=== PATIENT | female | born 1950 | race American Indian/Alaskan Native ===

== ENCOUNTER 2018-08-12 06:06 | Inpatient (IN) | payer MEDICARE ==
[2018-08-12] MEDS ORDERED: ZOFRAN IV ONE (07:24)
[2018-08-12] MEDS ORDERED: DILAUDID IV ONE ×2 (07:24→17:43)
[2018-08-12] MEDS ORDERED: REGLAN IV ONE (07:24)
[2018-08-12] MEDS ORDERED: NORMODYNE IV ONE (07:26)
--- NOTE | 2018-08-12 07:39 | Emergency Department Report ---
ED General Adult HPI - General Chief complaint: Chest Pain Stated complaint: CHEST PAIN Time Seen by Provider: 08/12/18 07:16 Source: EMS Mode of arrival: Stretcher Limitations: No Limitations - History of Present Illness Initial comments: The patient is a 68-year-old female who reports abdominal pain. This appears to be in the epigastric area and not radiating. I'm not certain that it doesn't also involve the lower chest. It is not pleuritic in nature. Its been associated with nausea. Patient denies pleuritic component. She denies shortness of breath. There's been no diaphoresis. She states she hasn't had pain like this before. She presents with a blood pressure over 200 systolic. She is not in acute distress. She denies any previous diagnosis of cardio vascular disease or any previous abdominal surgery. She has a great deal of dif ficulty describing the nature of the pain but says it's been constant since yesterday. She is here with a lady that is stating that the patient thought that it "might be her gallbladder". She has no prior history of gallstones. -: Gradual, hour(s) Location: abdomen (upper abdomen) Radiation: non-radiation Quality: aching (poorly characterized) Consistency: constant Improves with: none Worsens with: none Associated Symptoms: denies other symptoms, nausea/vomiting Treatments Prior to Arrival: none - Related Data Home Medications Medication Instructions Recorded Confirmed Last Taken hydroCHLOROthiazide [Hctz] 25 mg PO QDAY 01/28/13 08/12/18 07/13/16 09:00 Aspirin 325 mg PO DAILY 08/12/18 08/12/18 Unknown AtorvaSTATin [Lipitor] 20 mg PO QHS 08/12/18 08/12/18 Unknown Enalapril Maleate (Nf) 10 mg PO DAILY 08/12/18 08/12/18 Unknown Sertraline [Zoloft] 50 mg PO DAILY 08/12/18 08/12/18 Unknown Allergies Allergy/AdvReac Type Severity Reaction Status Date / Time No Known Allergies Allergy Verified 01/26/16 10:01 ED Review of Systems ROS: Stated complaint: CHEST PAIN Other details as noted in HPI Constitutional: denies: chills, fever Eyes: denies: eye pain, eye discharge, vision change ENT: denies: ear pain, throat pain Respiratory: denies: cough, shortness of breath, wheezing Cardiovascular: chest pain (possibly as well). denies: palpitations Endocrine: no symptoms reported Gastrointestinal: abdominal pain, nausea. denies: diarrhea Genitourinary: denies: urgency, dysuria, discharge Musculoskeletal: denies: back pain, joint swelling, arthralgia Skin: denies: rash, lesions Neurological: denies: headache, weakness, paresthesias Psychiatric: denies: anxiety, depression Hematological/Lymphatic: denies: easy bleeding, easy bruising ED Past Medical Hx - Past Medical History Previous Medical History?: Yes Hx Hypertension: Yes () Hx Renal Disease: No Hx Arthritis: Yes Hx Seizures: No Hx Asthma: Yes (INHALERS PRN) Additional medical history: angina. anxiety attacks - Surgical History Past Surgical History?: Yes Hx Appendectomy: Yes Additional Surgical History: hysterectomy. left foot surgery - Social History Smoking Status: Heavy Tobacco Smoker Substance Use Type: None - Medications Home Medications: Home Medications Medication Instructions Recorded Confirmed Last Taken Type hydroCHLOROthiazide [Hctz] 25 mg PO QDAY 01/28/13 08/12/18 07/13/16 09:00 History Aspirin 325 mg PO DAILY 08/12/18 08/12/18 Unknown History AtorvaSTATin [Lipitor] 20 mg PO QHS 08/12/18 08/12/18 Unknown History Enalapril Maleate (Nf) 10 mg PO DAILY 08/12/18 08/12/18 Unknown History Sertraline [Zoloft] 50 mg PO DAILY 08/12/18 08/12/18 Unknown History ED Physical Exam - General Limitations: No Limitations General appearance: alert, in no apparent distress - Head Head exam: Present: atraumatic, normocephalic - Eye Eye exam: Present: normal appearance. Absent: scleral icterus - ENT ENT exam: Present: mucous membranes moist - Neck Neck exam: Present: normal inspection - Respiratory Respiratory exam: Present: normal lung sounds bilaterally. Absent: respiratory distress - Cardiovascular Cardiovascular Exam: Present: regular rate, normal rhythm. Absent: systolic murmur, diastolic murmur, rubs, gallop - GI/Abdominal GI/Abdominal exam: Present: soft, normal bowel sounds, other (patient states abdominal palpation causes nausea but not tenderness). Absent: distended, tenderness, guarding, rebound, rigid - Extremities Exam Extremities exam: Present: normal inspection, normal capillary refill. Absent: calf tenderness - Back Exam Back exam: Present: normal inspection. Absent: CVA tenderness (R), CVA tenderness (L), rash noted - Neurological Exam Neurological exam: Present: alert, oriented X3, CN II-XII intact - Psychiatric Psychiatric exam: Present: normal affect, normal mood - Skin Skin exam: Present: warm, dry, intact, normal color. Absent: rash ED Course Vital Signs 08/12/18 08/12/18 08/12/18 07:10 07:19 07:25 Temperature 98.2 F Pulse Rate 52 L Respiratory 16 Rate Blood Pressure Blood Pressure 202/93 [Left] O2 Sat by Pulse 100 100 100 Oximetry 08/12/18 08/12/18 08/12/18 07:30 07:40 07:46 Temperature Pulse Rate 56 L Respiratory Rate Blood Pressure 195/117 202/93 202/93 Blood Pressure [Left] O2 Sat by Pulse 100 98 Oximetry 08/12/18 08/12/18 08/12/18 08:00 08:16 08:30 Temperature Pulse Rate Respiratory Rate Blood Pressure 132/61 132/61 127/63 Blood Pressure [Left] O2 Sat by Pulse 98 100 99 Oximetry 08/12/18 08/12/18 08/12/18 08:46 09:00 09:16 Temperature Pulse Rate Respiratory 16 Rate Blood Pressure 127/63 135/64 135/64 Blood Pressure [Left] O2 Sat by Pulse 100 99 98 Oximetry 08/12/18 08/12/18 08/12/18 09:30 09:56 10:00 Temperature Pulse Rate Respiratory Rate Blood Pressure 126/53 126/53 149/67 Blood Pressure [Left] O2 Sat by Pulse 99 98 99 Oximetry 08/12/18 08/12/18 08/12/18 10:46 11:00 11:16 Temperature Pulse Rate Respiratory Rate Blood Pressure 136/73 139/64 139/64 Blood Pressure [Left] O2 Sat by Pulse 99 99 98 Oximetry 08/12/18 08/12/18 11:34 11:46 Temperature Pulse Rate 60 Respiratory 13 Rate Blood Pressure 139/64 158/78 Blood Pressure [Left] O2 Sat by Pulse 83 L 100 Oximetry - Reevaluation(s) Reevaluation #1: Still awaiting ultrasound report. Patient's lipase was nearly 1,000. CT did not show any acute abnormality. Refer to the hospital service. 08/12/18 13:22 ED Medical Decision Making - Lab Data Result diagrams: 08/12/18 07:31 08/12/18 07:31 Laboratory Results - last 24 hr 08/12/18 08/12/18 08/12/18 07:31 07:31 07:31 WBC 16.2 H RBC 4.63 Hgb 12.1 Hct 37.5 MCV 81 MCH 26 L MCHC 32 RDW 15.4 H Plt Count 236 Lymph % (Auto) 8.1 L [place] % (Auto) 4.0 Eos % (Auto) 0.1 Baso % (Auto) 0.3 Lymph # 1.3 [place] # 0.6 Eos # 0.0 Baso # 0.0 Seg Neutrophils % 87.5 H Seg Neutrophils # 14.2 H PT 11.6 L INR 0.80 L APTT 23.0 L D-Dimer 1003.05 H Sodium 138 Potassium 3.7 Chloride 103.3 Carbon Dioxide 25 Anion Gap 13 BUN 9 Creatinine 0.7 Estimated GFR > 60 BUN/Creatinine Ratio 13 Glucose 125 H Calcium 8.8 Total Bilirubin 0.30 Direct Bilirubin < 0.2 AST 19 ALT 10 Alkaline Phosphatase 56 Total Creatine Kinase CK-MB (CK-2) CK-MB (CK-2) Rel Index Troponin T NT-Pro-B Natriuret Pep Total Protein 7.4 Albumin 4.0 Albumin/Globulin Ratio 1.2 Blood Type Antibody Screen 08/12/18 08/12/18 08/12/18 07:31 07:31 07:31 WBC RBC Hgb Hct MCV MCH MCHC RDW Plt Count Lymph % (Auto) [place] % (Auto) Eos % (Auto) Baso % (Auto) Lymph # [place] # Eos # Baso # Seg Neutrophils % Seg Neutrophils # PT INR APTT D-Dimer Sodium Potassium Chloride Carbon Dioxide Anion Gap BUN Creatinine Estimated GFR BUN/Creatinine Ratio Glucose Calcium Total Bilirubin Direct Bilirubin AST ALT Alkaline Phosphatase Total Creatine Kinase 77 CK-MB (CK-2) 1.7 CK-MB (CK-2) Rel Index 2.2 Troponin T < 0.010 NT-Pro-B Natriuret Pep 168.0 Total Protein Albumin Albumin/Globulin Ratio Blood Type B POSITIVE Antibody Screen Negative Laboratory Results - last 24 hr 04/07/19 04/07/19 04/07/19 07:31 07:31 07:31 WBC 16.2 H RBC 4.63 Hgb 12.1 Hct 37.5 MCV 81 MCH 26 L MCHC 32 RDW 15.4 H Plt Count 236 Lymph % (Auto) 8.1 L [place] % (Auto) 4.0 Eos % (Auto) 0.1 Baso % (Auto) 0.3 Lymph # 1.3 [place] # 0.6 Eos # 0.0 Baso # 0.0 Seg Neutrophils % 87.5 H Seg Neutrophils # 14.2 H PT 11.6 L INR 0.80 L APTT 23.0 L D-Dimer 1003.05 H Sodium 138 Potassium 3.7 Chloride 103.3 Carbon Dioxide 25 Anion Gap 13 BUN 9 Creatinine 0.7 Estimated GFR > 60 BUN/Creatinine Ratio 13 Glucose 125 H Calcium 8.8 Total Bilirubin 0.30 Direct Bilirubin < 0.2 AST 19 ALT 10 Alkaline Phosphatase 56 Total Creatine Kinase CK-MB (CK-2) CK-MB (CK-2) Rel Index Troponin T NT-Pro-B Natriuret Pep Total Protein 7.4 Albumin 4.0 Albumin/Globulin Ratio 1.2 Lipase 976 H Blood Type Antibody Screen 08/12/18 08/12/18 08/12/18 07:31 07:31 07:31 WBC RBC Hgb Hct MCV MCH MCHC RDW Plt Count Lymph % (Auto) [place] % (Auto) Eos % (Auto) Baso % (Auto) Lymph # [place] # Eos # Baso # Seg Neutrophils % Seg Neutrophils # PT INR APTT D-Dimer Sodium Potassium Chloride Carbon Dioxide Anion Gap BUN Creatinine Estimated GFR BUN/Creatinine Ratio Glucose Calcium Total Bilirubin Direct Bilirubin AST ALT Alkaline Phosphatase Total Creatine Kinase 77 CK-MB (CK-2) 1.7 CK-MB (CK-2) Rel Index 2.2 Troponin T < 0.010 NT-Pro-B Natriuret Pep 168.0 Total Protein Albumin Albumin/Globulin Ratio Lipase Blood Type B POSITIVE Antibody Screen Negative - EKG Data -: EKG Interpreted by Me EKG shows normal: sinus rhythm - EKG Data Interpretation: other (frequent PVCs normal axis slight ST depression inferolateral) - Radiology Data Radiology results: report reviewed (CTA of the abdomen chest and pelvis showed nothing acute. Abdominal ultrasound showed no biliary dilatation or gallstones otherwise unremarkable) Critical care attestation.: If time is entered above; I have spent that time in minutes in the direct care of this critically ill patient, excluding procedure time. ED Disposition Clinical Impression: Pancreatitis, acute Qualifiers: Pancreatitis type: unspecified pancreatitis type Acute pancreatitis complication: unspecified Qualified Code(s): K85.90 - Acute pancreatitis without necrosis or infection, unspecified Disposition: 09 OP ADMIT IP TO THIS HOSP Is pt being admited?: Yes Does the pt Need Aspirin: Yes Condition: Stable Referrals: [facility] [Other] - 3-5 Days Time of Disposition: 13:41
[2018-08-12 07:50] LABS: Basophils % (Auto) 0.3 % (0.0-1.8); Eosinophils % (Auto) 0.1 % (0.0-4.3); Hematocrit 37.5 % (30.3-42.9); Hemoglobin 12.1 gm/dl (10.1-14.3); Lymphocytes # (Auto) 1.3 K/mm3 (1.2-5.4); Lymphocytes % (Auto) 8.1 % (13.4-35.0); Mean Corpuscular HGB Conc 32 % (30-34); Mean Corpuscular Volume 81 fl (79-97); Monocytes # (Auto) 0.6 K/mm3 (0.0-0.8); Platelet Count 236 K/mm3 (140-440); Red Blood Count 4.63 M/mm3 (3.65-5.03); Red Cell Distribution Width 15.4 % (13.2-15.2)
[2018-08-12 07:59] LABS: INR 0.8 (0.87-1.13)
--- NOTE | 2018-08-12 08:02 | XRay Report ---
EXAM: XR CHEST 1V AP HISTORY: HTN TECHNIQUE: PA and lateral chest x-ray dated 08/12/2017 at 7:38 AM. COMPARISON: None available. FINDINGS: The heart size and mediastinum are within normal limits. The lung alva and costophrenic angles are clear. There is no acute parenchymal infiltrate, pleural effusion, or pneumothorax seen. The visua lized bony structures are within normal limits. IMPRESSION: 1. No evidence for acute cardiopulmonary disease seen. This document is electronically signed by Wyatt Vazquez MD., August 12 2018 08:00:26 AM ET
[2018-08-12 08:06] LABS: Creatine Kinase MB 1.7 ng/mL (0.0-4.0)
[2018-08-12 08:09] LABS: Alanine Aminotransferase 10 units/L (7-56); BUN/Creatinine Ratio 13; Blood Urea Nitrogen 9 mg/dL (7-17); Calcium 8.8 mg/dL (8.4-10.2); Hemolysis Index 10
[2018-08-12 08:11] LABS: Bilirubin,Direct < 0.2 mg/dL (0-0.2)
[2018-08-12 11:56] LABS: Bacteria,Urine 1+ /HPF (Negative); Bilirubin,Urine NEG (Negative); Blood,Urine NEG (Negative); Color,Urine Yellow (Yellow); Mucus,Urine FEW /HPF; Protein,Urine <15 mg/dL mg/dL (Negative); Urobilinogen,Urine < 2.0 mg/dL (<2.0)
--- NOTE | 2018-08-12 12:19 | Cat Scan Report ---
EXAM: CT ANGIO CHEST HISTORY: chest and abd pain htn TECHNIQUE: Spiral axial CT images with sagittal and coronal reformatted images are obtained through the chest with the administration of intravenous contrast. DOSIMETRY: Total DLP: 1044.73 mGycm COMPARISON: None available. FINDINGS: CARDIOVASCULAR: There is no evidence for pulmonary embolic disease. The heart size and mediastinal va scular structures are within normal limits. There is no significant aortic or coronary atheroscleros is seen. No thoracic aortic aneurysm or dissection is noted. MEDIASTINUM AND TRU: No mass lesion, lymphadenopathy, emphysema, or abnormal fluid collection is see n. LUNGS: There is no acute parenchymal infiltrate, lung nodule, or endobronchial obstructing lesion see n. No pleural effusion or pneumothorax is evident. There is an approximately 1 cm emphysematous bull a in the superior segment of the right lower lobe CHEST WALL: There are no chest wall lesions seen. The visualized bony structures are within normal l imits. No axillary lymphadenopathy is noted. UPPER ABDOMEN: Limited views through the upper abdomen demonstrate no gross acute abnormality. Small calcified granulomas are seen in the spleen and liver. IMPRESSION: 1. No evidence for pulmonary embolic disease. 2. No evidence for aortic aneurysm or aortic dissection. 3. No acute parenchymal infiltrate, pleural effusion, endobronchial obstructing lesion or pneumothor ax seen. 4. Evidence for prior granulomatous disease marked by calcified splenic and hepatic granulomas. This document is electronically signed by Wyatt Vazquez MD., August 12 2018 12:18:10 PM ET
--- NOTE | 2018-08-12 12:41 | Cat Scan Report ---
EXAM: CT ANGIO ABDOMEN PELVIS HISTORY: chest and abd pain htn TECHNIQUE: Spiral axial CT images are obtained through the abdomen and pelvis without the administrat ion of oral contrast and with the administration of intravenous contrast. Additional coronal and sagi ttal reformatted images are reconstructed. COMPARISON: None available. FINDINGS: GASTROINTESTINAL TRACT: There is severe diffuse colonic diverticulosis, without evidence for divertic ulitis. No evidence for bowel herniation, bowel obstruction, or colitis. There are no stigmata of bowel obstr uction, colitis or diverticulitis. A normal-appearing appendix is seen. GENITOURINARY SYSTEM: The kidneys are unremarkable. There is no ureteral calculus or stigmata of obst ructive uropathy. The urinary bladder is grossly unremarkable for a non-dedicated exam. CT ABDOMEN: There is evidence for prior granulomatous disease marked by multiple innumerable calcifie d granulomas in the spleen and liver. There is evidence for aortoiliac atherosclerotic disease, witho ut aneurysm formation or dissection. The liver, spleen, pancreas, adrenal glands, gallbladder and in ferior vena cava are within normal limits for a noncontrast CT scan. There is no intra-abdominal or retroperitoneal lymphadenopathy, free fluid, or free air seen. No abdominal herniation is noted. CT PELVIS: There is severe multilevel DDD throughout the lumbar spine, progressively worse distally. There is severe osteoarthritis of the hips, marked by joint space narrowing and marginal osteophytosi s (right greater than left). The visualized bony structures are otherwise within normal limits. No p elvic sidewall or inguinal lymphadenopathy is seen. No inguinal herniation is noted. No free fluid o r free air is seen. LUNG BASES: The lung bases are clear. Approximately 1.2 cm right infrahilar/medial right lower lobe n oncalcified lung nodule. For low risk patient, recommend follow-up CT in 12 months, and if stable no further follow-up. For high-risk patient, recommend follow-up CT in no more than 6-12 months, and if stable, consider follow-up at 18-24 months. IMPRESSION: 1. No gross acute abnormality seen. 2. No evidence for renal stone disease or obstructive uropathy. 3. Severe diffuse colonic diverticulosis, without evidence for diverticulitis. 4. No evidence for bowel herniation, bowel obstruction, or colitis. 5. Severe multilevel DDD throughout the L-spine, progressively worse distally. 6. No evidence for acute appendicitis, bowel obstruction, colitis or diverticulitis seen. 7. Approximately 1.2 cm right infrahilar/medial right lower lobe noncalcified lung nodule. For low r isk patient, recommend follow-up CT in 12 months, and if stable no further follow-up. For high-risk p atient, recommend follow-up CT in no more than 6-12 months, and if stable, consider follow-up at 18-2 4 months. This document is electronically signed by Wyatt Vazquez MD., August 12 2018 12:39:36 PM ET
--- NOTE | 2018-08-12 13:24 | History and Physical Report ---
History of Present Illness Chief complaint: My stomach hurts History of present illness: 68 YO Female with HTN, OA, Asthma, Anxiety, Nicotine Dependence presents to ED for evaluation. Pt states that she has experienced abdominal pain, Nausea, and inability to tolerate oral diet over the past 2 days with persistent symptoms over the same time frame. Pt states that pain is 3-6/10, Epigastric, nonradiating, constant, aching, no exacerbating or alleviating factors. EMS notified and upon arrival the patient was found to be in distress and transported to [facility]. Pt seen and evaluated in ED and found to have Acute Pancrea titis, Abdominal pain, SIRS, and Right Lung nodule as incidental finding on CT scan. Pt denies fever, chills, CP, Palpitations, Trauma, BRBPR, Unintentional weight loss, night sweats, ingestion of food/water from new/different sources. No prior admissions for review. All listed medication reconciled at admission. GI consulted in ED. Pt admitted to medical floor. Past History Past Medical History: arthritis, hypertension Past Surgical History: appendectomy, hysterectomy, Other (Foot surgery) Social history: , smoking. denies: alcohol abuse, prescription drug abuse Family history: hypertension Medications and Allergies Allergies Allergy/AdvReac Type Severity Reaction Status Date / Time No Known Allergies Allergy Verified 01/26/16 10:01 Home Medications Medication Instructions Recorded Confirmed Last Taken Type hydroCHLOROthiazide [Hctz] 25 mg PO QDAY 01/28/13 08/12/18 07/13/16 09:00 History Aspirin 325 mg PO DAILY 08/12/18 08/12/18 Unknown History AtorvaSTATin [Lipitor] 20 mg PO QHS 08/12/18 08/12/18 Unknown History Enalapril Maleate (Nf) 10 mg PO DAILY 08/12/18 08/12/18 Unknown History Sertraline [Zoloft] 50 mg PO DAILY 08/12/18 08/12/18 Unknown History Review of Systems Constitutional: no weight loss, no weight gain, no fever, no chills, no anorexia, no weakness Ears, nose, mouth and throat: no ear pain, no ear discharge, no tinnitis, no decreased hearing, no nose pain Breasts: no change in shape, no swelling, no mass Cardiovascular: no chest pain, no orthopnea, no palpitations, no rapid/irregular heart beat Respiratory: no cough, no cough with sputum, no excessive sputum, no hemoptysis Gastrointestinal: abdominal pain, nausea, no constipation, no change in bowel habits, no coffee ground emesis, no BRBPR, no melena, no hematochezia, no jaundice Genitourinary Female: no pelvic pain, no flank pain, no menorrhagia, no dysuria, no urinary frequency, no urgency Rectal: no pain, no incontinence, no bleeding Musculoskeletal: no neck stiffness, no neck pain, no shooting arm pain, no arm numbness/tingling, no low back pain, no shooting leg pain, no leg numbness/tingling Integumentary: no rash, no pruritis, no redness, no sores, no wounds, no jaundice Neurological: no head injury, no transient paralysis, no paralysis, no weakness, no parathesias, no tingling, no syncope, no tremors Psychiatric: no anxiety, no memory loss, no change in sleep habits, no sleep disturbances, no insomnia, no hypersomnia, no change in appetite, no suicidal ideation Endocrine: no cold intolerance, no heat intolerance, no polyphagia, no excessive thirst, no polydipsia, no polyuria, no nocturia Hematologic/Lymphatic: no easy bruising, no easy bleeding, no lymphedema Allergic/Immunologic: no urticaria, no allergic rhinitis, no wheezing, no persistent infections Exam - Constitutional Vitals: Temp Pulse Resp BP Pulse Ox 98.2 F 60 13 158/78 100 08/12/18 07:19 08/12/18 11:46 08/12/18 11:46 08/12/18 11:46 08/12/18 11:46 General appearance: Present: mild distress, cachectic - EENT Eyes: Present: PERRL ENT: hearing intact, clear oral mucosa - Neck Neck: Present: supple, normal ROM - Respiratory Respiratory effort: normal Respiratory: bilateral: CTA - Cardiovascular Heart Sounds: Present: S1 & S2. Absent: rub, click - Extremities Extremities: pulses symmetrical, No edema Peripheral Pulses: within normal limits - Abdominal General gastrointestinal: Present: soft, tender, non-distended, normal bowel sounds. Absent: hepatomegaly, splenomegaly, mass, hernia Localized gastrointestinal: tender: epigastric periumbilical Female genitourinary: Present: normal - Integumentary Integumentary: Present: clear, warm, dry - Musculoskeletal Musculoskeletal: gait normal, strength equal bilaterally - Psychiatric Psychiatric: appropriate mood/affect, intact judgment & insight - Neurologic Neurologic: CNII-XII intact, moves all extremities Results - Labs CBC & Chem 7: 08/12/18 07:31 08/12/18 07:31 Labs: Abnormal lab results 08/12/18 08/12/18 08/12/18 Range/Units 07:31 07:31 07:31 WBC 16.2 H (4.5-11.0) K/mm3 MCH 26 L (28-32) pg RDW 15.4 H (13.2-15.2) % Lymph % (Auto) 8.1 L (13.4-35.0) % Seg Neutrophils % 87.5 H (40.0-70.0) % Seg Neutrophils # 14.2 H (1.8-7.7) K/mm3 PT 11.6 L (12.2-14.9) Sec. INR 0.80 L (0.87-1.13) APTT 23.0 L (24.2-36.6) Sec. D-Dimer 1003.05 H (0-234) ng/mlDDU Glucose 125 H (65-100) mg/dL Lipase 976 H (13-60) units/L Ur Specific [place] (1.003-1.030) 08/12/18 Range/Units 11:40 WBC (4.5-11.0) K/mm3 MCH (28-32) pg RDW (13.2-15.2) % Lymph % (Auto) (13.4-35.0) % Seg Neutrophils % (40.0-70.0) % Seg Neutrophils # (1.8-7.7) K/mm3 PT (12.2-14.9) Sec. INR (0.87-1.13) APTT (24.2-36.6) Sec. D-Dimer (0-234) ng/mlDDU Glucose (65-100) mg/dL Lipase (13-60) units/L Ur Specific [place] 1.060 H (1.003-1.030) Assessment and Plan - Patient Problems (1) SIRS (systemic inflammatory response syndrome) Current Visit: Yes Status: Acute Plan to address problem: CBC, CMP,Empiric antibiotic therapy, Chest x ray, urinalysis, IVF resuscitation therapy, (2) Pancreatitis, acute Current Visit: Yes Status: Acute Qualifiers: Pancreatitis type: unspecified pancreatitis type Acute pancreatitis complication: unspecified Qualified Code(s): K85.90 - Acute pancreatitis with out necrosis or infection, unspecified Plan to address problem: IVF resuscitation therapy, bowel rest, advance diet as tolerated, CT ABdomen pelvis, ultrasound abdomen ordered and pending at time of admission, GI consulted, (3) Nicotine dependence with withdrawal Current Visit: Yes Status: Acute Qualifiers: Nicotine product type: cigarettes Qualified Code(s): F17.213 - Nicotine dependence, cigarettes, with withdrawal Plan to address problem: Smoking cessation counseling, supportive care. (4) Hypertension Current Visit: No Status: Chronic Qualifiers: Hypertension type: essential hypertension Qualified Code(s): I10 - Essential (primary) hypertension Plan to address problem: Monitor bp q shift, continue prehospital medication, continue medical manageme nt, IV hydralazine prn (5) Right lower lobe pulmonary nodule Current Visit: Yes Status: Acute Plan to address problem: Incidental finding on CT; Repeat CT chest in 6 months as outpatient. (6) DVT prophylaxis Current Visit: No Status: Acute Plan to address problem: SCD to BLE while in bed, prophylactic lovenox
[2018-08-12] MEDS ORDERED: PROVENTIL IH PRN (13:34)
[2018-08-12] MEDS ORDERED: SODIUM CHLORIDE FLUSH SYRINGE 10 ML IV PRN (13:34)
--- NOTE | 2018-08-12 13:34 | Ultrasound Report ---
PROCEDURE: US GALLBLADDER TECHNIQUE: Real-time sonography in multiple planes of the gallbladder fossa and CBD with imaging of the adjacent liver, pancreas, and right kidney was performed with image documentation. CPT 73489 HISTORY: Pancreatitis COMPARISONS: CT 08/12/2018 . FINDINGS: Liver: Multiple echogenic foci are seen in the liver, compatible with calcified granulomas. Gallbladder: Fluid filled. No gallstones, wall thickening, pericholecystic fluid, or sonographic Mur phy's sign. Intrahepatic bile ducts: Normal . Extrahepatic bile ducts: Common bile duct measures 2 mm in caliber. Pancreas: Not fully visualized. Right kidney: Normal echotexture. No focal renal mass, calculus, or hydronephrosis. Other: No free fluid. IMPRESSION: No sonographic evidence of cholelithiasis or biliary ductal dilatation . This document is electronically signed by Pat Hatfield MD., August 12 2018 01:33:06 PM ET
[2018-08-12] MEDS ORDERED: BABY ASPIRIN PO ONE (13:41)
[2018-08-12] MEDS ORDERED: APRESOLINE IV PRN (17:27)
[2018-08-12] MEDS ORDERED: ZOFRAN ONE (17:33)
[2018-08-12] MEDS: ZOFRAN IV PRN (17:36)
[2018-08-12] MEDS ORDERED: DILAUDID ONE (17:41)
[2018-08-12] MEDS ORDERED: LEVAQUIN 500MG/100ML 500 MG/100 ML BAG IV ONE (18:44)
[2018-08-12] MEDS: LEVAQUIN 500MG/100ML 500 MG/100 ML BAG IV SCH (18:45)
[2018-08-12] MEDS: SODIUM CHLORIDE FLUSH SYRINGE 10 ML IV SCH (23:11)
[2018-08-12] MEDS: LOVENOX SUB-Q SCH (23:11)
[2018-08-12] MEDS: TYLENOL PO PRN (23:18)
[2018-08-13] MEDS: NACL 0.45% 1000 ML 1,000 ML IV SCH ×3 (00:10→21:09)
[2018-08-13 04:00] LABS: Hematocrit 34.1 % (30.3-42.9); Mean Corpuscular Volume 81 fl (79-97); Red Blood Count 4.21 M/mm3 (3.65-5.03)
[2018-08-13 04:01] LABS: Basophils % (Auto) 0.4 % (0.0-1.8); Eosinophils % (Auto) 0.2 % (0.0-4.3); Lymphocytes # (Auto) 2.1 K/mm3 (1.2-5.4); Lymphocytes % (Auto) 17.5 % (13.4-35.0); Mean Corpuscular HGB Conc 32 % (30-34); Monocytes # (Auto) 0.8 K/mm3 (0.0-0.8); Monocytes % (Auto) 6.5 % (0.0-7.3); Platelet Count 220 K/mm3 (140-440); Red Cell Distribution Width 15.8 % (13.2-15.2)
[2018-08-13 04:13] LABS: Alanine Aminotransferase 7 units/L (7-56); Albumin 3.3 g/dL (3.9-5); BUN/Creatinine Ratio 13; Blood Urea Nitrogen 8 mg/dL (7-17); Calcium 8.8 mg/dL (8.4-10.2); Hemolysis Index 9
[2018-08-13] MEDS: HCTZ PO SCH (09:20)
[2018-08-13] MEDS: ZOLOFT PO SCH (09:20)
[2018-08-13] MEDS: ASPIRIN PO SCH (09:20)
[2018-08-13] MEDS: TYLENOL PO PRN (09:37)
[2018-08-13] MEDS: SODIUM CHLORIDE FLUSH SYRINGE 10 ML IV SCH ×2 (09:40→22:14)
[2018-08-13] MEDS ORDERED: NORCO 10/325 PO PRN (10:00)
[2018-08-13] MEDS ORDERED: ZESTRIL PO SCH ×2 (10:00→12:48)
[2018-08-13] MEDS ORDERED: ENALAPRIL MALEATE 10 MG PO SCH (10:00)
--- NOTE | 2018-08-13 11:55 | Progress Note ---
Assessment and Plan Assessment and plan: Assessment: 68 Y.O. female presented to ED on 08/12/18 with c/o of acute abdominal pain, admitted for Acute Pancreatitis. Upon assessment pt has tenderness to LUQ and LLQ. SIRS Acute Prancreatitis HTN Pain Mgmt Suspected Pulmonary Nodule- Right Lower Lobe Nicotine Abuse Plan: Continue IVF, bowel rest, and advance diet as tolerated Continue pain management Continue levaquin Am Labs: CBC, CMP CT Abd and Pelvis 08/12 resulted: no gross acute abnormalities; severe diffuse colonic diverticulosis without evidence of diverticulitis; and unrevealing for bowel herniation, obstruction, colitis, and acute appendicitis. Abdominal US 08/12 unrevealing for cholelthiasis or biliary ductal dilatation CXR 08/12 unrevealing for any acute cardiopulmonary disease GI consulted pending recommendations Increase Lisinopril to 20mg BID Continue home HCTZ and monitor BP, IV hydralazine PRN Continue to encourage smoking smoking cessation, start Nicotine patch 7mg Daily CT Abdomen was concerning for RLL pulmonary nodule. CT Chest on 08/12 did not show any evidence of any pulmonary nodules. Plans to D/C to home for 08/14 Continue DVT PPX Lovenox History Interval history: Pt continues to c/o moderate 5/10 abdominal pain and nausea. She denies any episodes of emesis. There were no acute overnight events. Hospitalist Physical - Constitutional Vitals: Temp Pulse Resp BP Pulse Ox 99.2 F 61 16 152/65 99 08/13/18 07:47 08/13/18 09:19 08/13/18 09:37 08/13/18 09:19 08/13/18 10:00 General appearance: Present: mild distress, cachectic - EENT Eyes: Present: PERRL ENT: hearing intact - Neck Neck: Present: supple, normal ROM - Respiratory Respiratory effort: normal - Cardiovascular Rhythm: regular Heart Sounds: Present: S1 & S2 - Extremities Extremities: pulses intact, No edema Peripheral Pulses: within normal limits - Abdominal General gastrointestinal: tender (LUQ and LLQ) Localized gastrointestinal: tender: LUQ, LLQ, midline - Integumentary Integumentary: Present: warm, dry - Psychiatric Psychiatric: appropriate mood/affect - Neurologic Neurologic: CNII-XII intact - Allied Health Allied health notes reviewed: nursing, RT Results - Labs CBC & Chem 7: 08/13/18 02:49 04/08/19 02:49 Labs: Laboratory Last Values WBC 12.2 K/mm3 (4.5-11.0) H 08/13/18 02:49 RBC 4.21 M/mm3 (3.65-5.03) 08/13/18 02:49 Hgb 11.0 gm/dl (10.1-14.3) 08/13/18 02:49 Hct 34.1 % (30.3-42.9) 08/13/18 02:49 MCV 81 fl (79-97) 08/13/18 02:49 MCH 26 pg (28-32) L 08/13/18 02:49 MCHC 32 % (30-34) 08/13/18 02:49 RDW 15.8 % (13.2-15.2) H 08/13/18 02:49 Plt Count 220 K/mm3 (140-440) 08/13/18 02:49 Lymph % (Auto) 17.5 % (13.4-35.0) 08/13/18 02:49 [place] % (Auto) 6.5 % (0.0-7.3) 08/13/18 02:49 Eos % (Auto) 0.2 % (0.0-4.3) 08/13/18 02:49 Baso % (Auto) 0.4 % (0.0-1.8) 08/13/18 02:49 Lymph # 2.1 K/mm3 (1.2-5.4) 08/13/18 02:49 [place] # 0.8 K/mm3 (0.0-0.8) 08/13/18 02:49 Eos # 0.0 K/mm3 (0.0-0.4) 08/13/18 02:49 Baso # 0.0 K/mm3 (0.0-0.1) 08/13/18 02:49 Seg Neutrophils % 75.4 % (40.0-70.0) H 08/13/18 02:49 Seg Neutrophils # 9.2 K/mm3 (1.8-7.7) H 08/13/18 02:49 PT 11.6 Sec. (12.2-14.9) L 08/12/18 07:31 INR 0.80 (0.87-1.13) L 08/12/18 07:31 APTT 23.0 Sec. (24.2-36.6) L 08/12/18 07:31 D-Dimer 1003.05 ng/mlDDU (0-234) H 08/12/18 07:31 Sodium 137 mmol/L (137-145) 08/13/18 02:49 Potassium 3.5 mmol/L (3.6-5.0) L 08/13/18 02:49 Chloride 102.4 mmol/L (98-107) 08/13/18 02:49 Carbon Dioxide 23 mmol/L (22-30) 08/13/18 02:49 Anion Gap 15 mmol/L 08/13/18 02:49 BUN 8 mg/dL (7-17) 08/13/18 02:49 Creatinine 0.6 mg/dL (0.7-1.2) L 08/13/18 02:49 Estimated GFR > 60 ml/min 08/13/18 02:49 BUN/Creatinine Ratio 13 % 08/13/18 02:49 Glucose 77 mg/dL (65-100) 08/13/18 02:49 Calcium 8.8 mg/dL (8.4-10.2) 08/13/18 02:49 Total Bilirubin 0.40 mg/dL (0.1-1.2) 08/13/18 02:49 Direct Bilirubin < 0.2 mg/dL (0-0.2) 08/12/18 07:31 AST 14 units/L (5-40) 08/13/18 02:49 ALT 7 units/L (7-56) 08/13/18 02:49 Alkaline Phosphatase 45 units/L (35-129) 08/13/18 02:49 Total Creatine Kinase 77 units/L (30-135) 08/12/18 07:31 CK-MB (CK-2) 1.7 ng/mL (0.0-4.0) 08/12/18 07:31 CK-MB (CK-2) Rel Index 2.2 (0-4) 08/12/18 07:31 Troponin T < 0.010 ng/mL (0.00-0.029) 08/12/18 07:31 NT-Pro-B Natriuret Pep 168.0 pg/mL (0-900) 08/12/18 07:31 Total Protein 6.2 g/dL (6.3-8.2) L 08/13/18 02:49 Albumin 3.3 g/dL (3.9-5) L 08/13/18 02:49 Albumin/Globulin Ratio 1.1 % 08/13/18 02:49 Lipase 976 units/L (13-60) H 08/12/18 07:31 Urine Color Yellow (Yellow) 08/12/18 11:40 Urine Turbidity Clear (Clear) 08/12/18 11:40 Urine pH 6.0 (5.0-7.0) 08/12/18 11:40 Ur Specific [place] 1.060 (1.003-1.030) H 08/12/18 11:40 Urine Protein <15 mg/dl mg/dL (Negative) 08/12/18 11:40 Urine Glucose (UA) Neg mg/dL (Negative) 08/12/18 11:40 Urine Ketones Neg mg/dL (Negative) 08/12/18 11:40 Urine Blood Neg (Negative) 08/12/18 11:40 Urine Nitrite Pos (Negative) 08/12/18 11:40 Urine Bilirubin Neg (Negative) 08/12/18 11:40 Urine Urobilinogen < 2.0 mg/dL (<2.0) 08/12/18 11:40 Ur Leukocyte Esterase Neg (Negative) 08/12/18 11:40 Urine WBC (Auto) 1.0 /HPF (0.0-6.0) 08/12/18 11:40 Urine RBC (Auto) 4.0 /HPF (0.0-6.0) 08/12/18 11:40 U Epithel Cells (Auto) 1.0 /HPF (0-13.0) 08/12/18 11:40 Urine Bacteria (Auto) 1+ /HPF (Negative) 08/12/18 11:40 Urine Mucus Few /HPF 08/12/18 11:40 Blood Type B POSITIVE 08/12/18 07:31 Antibody Screen Negative 08/12/18 07:31 Active Medications - Current Medications Current Medications: Generic Name Dose Route Start Last Admin Trade Name Freq PRN Reason Stop Dose Admin Acetaminophen 650 mg 08/12/18 13:34 08/13/18 09:37 Tylenol PO 650 mg Q4H PRN Administration Pain MILD(1-3)/Fever >100.5/SALCIDO Acetaminophen/Hydrocodone Bitart 1 each 08/13/18 10:00 [place] 10/325 PO Q6H PRN Pain, Moderate (4-6) Albuterol 2.5 mg 08/12/18 13:34 Proventil IH Q4HRT PRN Shortness Of Breath Aspirin 325 mg 08/13/18 10:00 08/13/18 09:20 Aspirin PO 325 mg DAILY SULEMA Administration Atorvastatin Calcium 20 mg 08/12/18 22:00 08/12/18 23:11 Lipitor PO 20 mg QHS SULEMA Administration Enoxaparin Sodium 40 mg 08/12/18 22:00 08/12/18 23:11 Lovenox SUB-Q 40 mg QDAY@2200 SULEMA Administration Hydralazine HCl 10 mg 08/12/18 17:27 Apresoline IV Q6H PRN SBP > 155 Hydrochlorothiazide 25 mg 08/13/18 10:00 08/13/18 09:20 Hctz PO 25 mg QDAY SULEMA Administration Hydromorphone HCl 0.5 mg 08/13/18 09:39 Dilaudid IV Q3H PRN Pain , Severe (7-10) Sodium Chloride 1,000 mls @ 75 mls/hr 08/12/18 14:00 08/13/18 09:59 Nacl 0.45% 1000 Ml IV 75 mls/hr DIRECT SULEMA Administration Levofloxacin/Dextrose 500 mg in 100 mls @ 100 mls/hr 08/12/18 18:00 08/12/18 18:45 Levaquin 500mg/100ml IV 100 mls/hr Q24H SULEMA Administration Protocol Lisinopril 10 mg 08/13/18 10:00 08/13/18 09:19 Zestril PO 10 mg QDAY SULEMA Administration Ondansetron HCl 4 mg 08/12/18 13:34 08/12/18 17:36 Zofran IV 4 mg Q8H PRN Administration Nausea And Vomiting Sertraline HCl 50 mg 08/13/18 10:00 08/13/18 09:20 Zoloft PO 50 mg DAILY SULEMA Administration Sodium Chloride 10 ml 08/12/18 22:00 08/13/18 09:40 Sodium Chloride Flush Syringe 10 Ml IV Not Given BID SULEMA Sodium Chloride 10 ml 08/12/18 13:34 Sodium Chloride Flush Syringe 10 Ml IV PRN PRN LINE FLUSH Nutrition/Malnutrition Assess - Dietary Evaluation Nutrition/Malnutrition Findings: Nutrition Notes Start: 08/13/18 10:20 Freq: Status: Active Protocol: Document 08/13/18 10:20 SANCHEZ (Rec: 08/13/18 10:20 OHEMERITA [id number] [email or web address]) Nutrition Notes 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 Will assess upon further consult or LOS.
[2018-08-13] MEDS ORDERED: KCL 40 MEQ in NACL 0.45% 500 ML IV SCH (12:30)
[2018-08-13] MEDS: ZOFRAN IV PRN ×2 (13:15→23:48)
[2018-08-13] MEDS: DILAUDID IV PRN (13:15)
[2018-08-13] MEDS: ZESTRIL PO SCH (13:16)
[2018-08-13] MEDS: HABITROL TD SCH (13:23)
[2018-08-13] MEDS: LEVAQUIN 500MG/100ML 500 MG/100 ML BAG IV SCH (21:09)
[2018-08-13] MEDS: LOVENOX SUB-Q SCH (22:14)
[2018-08-14] MEDS: ASPIRIN PO SCH (09:35)
[2018-08-14] MEDS: SODIUM CHLORIDE FLUSH SYRINGE 10 ML IV SCH ×2 (09:36→21:20)
[2018-08-14] MEDS: ZESTRIL PO SCH (09:36)
[2018-08-14] MEDS: HABITROL TD SCH (09:36)
[2018-08-14] MEDS: ZOLOFT PO SCH (09:36)
[2018-08-14] MEDS: HCTZ PO SCH (09:36)
[2018-08-14] MEDS: NACL 0.45% 1000 ML 1,000 ML IV SCH (09:40)
--- NOTE | 2018-08-14 11:35 | Gastroenterology Consultation ---
<EBONY DEL CASTILLO - Last Filed: 08/14/18 11:55> History of Present Illness - Reason for Consult Consult date: 08/14/18 pancreatitis Requesting physician: ISMAEL BRUNNER - History of Present Illness Patient is a 68 y/o female with PMH of HTN, OA, asthma, anxiety, and nicotine dependence who presented to ED with c/o abdominal pain with associated nausea. Upon admission, lipase was noted to be elevated and she was admitted with acute pancreatitis to which GI has been consulted. CTA chest/abdomen w/o acute process (pancreas normal). Abdominal U/S w/o gallstones or biliary dilation. This morning patient was resting in bed w/o acute distress. She reports an acute onset of upper abdominal pain in LUQ/epigastric area on Monday that progres sively worsened with associated nausea. She states her abd pain and nausea are now improving (rating pain 1-3). Tolerating liquids. No prior hx of pancreatitis. Has a remote hx of alcohol abuse (6-12 beers/day) but quitting drinking 2 years ago in 2017 per pt report. No new medications. Denies fever, CP, SOB, wt loss, vomiting, jaundice, signs of bleeding, or LGI symptoms. Past History Past Medical History: other (as per HPI) Past Surgical History: appendectomy, hysterectomy, Other (left foot surgery) Social history: , smoking, other (remote hx of alcohol abuse (quit drinking 2 yrs ago)). denies: alcohol abuse, prescription drug abuse Family history: hypertension Medications and Allergies Allergies Allergy/AdvReac Type Severity Reaction Status Date / Time No Known Allergies Allergy Verified 01/26/16 10:01 Home Medications Medication Instructions Recorded Confirmed Last Taken Type hydroCHLOROthiazide [Hctz] 25 mg PO QDAY 01/28/13 08/12/18 07/13/16 09:00 History Aspirin 325 mg PO DAILY 08/12/18 08/12/18 Unknown History AtorvaSTATin [Lipitor] 20 mg PO QHS 08/12/18 08/12/18 Unknown History Enalapril Maleate (Nf) 10 mg PO DAILY 08/12/18 08/12/18 Unknown History Sertraline [Zoloft] 50 mg PO DAILY 08/12/18 08/12/18 Unknown History Active Meds: Active Medications Acetaminophen (Tylenol) 650 mg PO Q4H PRN PRN Reason: Pain MILD(1-3)/Fever >100.5/[place] Last Admin: 08/13/18 09:37 Dose: 650 mg Documented by: Acetaminophen/Hydrocodone Bitart ([place] 10/325) 1 each PO Q6H PRN PRN Reason: Pain, Moderate (4-6) Albuterol (Proventil) 2.5 mg IH Q4HRT PRN PRN Reason: Shortness Of Breath Aspirin (Aspirin) 325 mg PO DAILY COUNT INCLUDES THE [facility] Last Admin: 08/14/18 09:35 Dose: 325 mg Documented by: Atorvastatin Calcium (Lipitor) 20 mg PO QHS COUNT INCLUDES THE [facility] Last Admin: 08/13/18 22:13 Dose: 20 mg Documented by: Enoxaparin Sodium (Lovenox) 40 mg SUB-Q QDAY@2200 COUNT INCLUDES THE [facility] Last Admin: 08/13/18 22:14 Dose: 40 mg Documented by: Hydralazine HCl (Apresoline) 10 mg IV Q6H PRN PRN Reason: SBP > 155 Hydrochlorothiazide (Hctz) 25 mg PO QDAY COUNT INCLUDES THE [facility] Last Admin: 08/14/18 09:36 Dose: 25 mg Documented by: Hydromorphone HCl (Dilaudid) 0.5 mg IV Q3H PRN PRN Reason: Pain , Severe (7-10) Last Admin: 08/13/18 13:15 Dose: 0.5 mg Documented by: Sodium Chloride (Nacl 0.45% 1000 Ml) 1,000 mls @ 75 mls/hr IV DIRECT COUNT INCLUDES THE [facility] Last Admin: 08/14/18 09:40 Dose: 75 mls/hr Documented by: Levofloxacin/Dextrose (Levaquin 500mg/100ml) 500 mg in 100 mls @ 100 mls/hr IV Q24H COUNT INCLUDES THE [facility]; Protocol Last Admin: 08/13/18 21:09 Dose: 100 mls/hr Documented by: Lisinopril (Zestril) 20 mg PO QDAY COUNT INCLUDES THE [facility] Last Admin: 08/14/18 09:36 Dose: 20 mg Documented by: Nicotine (Habitrol) 7 mg TD QDAY COUNT INCLUDES THE [facility] Last Admin: 08/14/18 09:36 Dose: Not Given Documented by: Ondansetron HCl (Zofran) 4 mg IV Q8H PRN PRN Reason: Nausea And Vomiting Last Admin: 08/13/18 23:48 Dose: 4 mg Documented by: Sertraline HCl (Zoloft) 50 mg PO DAILY COUNT INCLUDES THE [facility] Last Admin: 08/14/18 09:36 Dose: 50 mg Documented by: Sodium Chloride (Sodium Chloride Flush Syringe 10 Ml) 10 ml IV BID COUNT INCLUDES THE [facility] Last Admin: 08/14/18 09:36 Dose: 10 ml Documented by: Sodium Chloride (Sodium Chloride Flush Syringe 10 Ml) 10 ml IV PRN PRN PRN Reason: LINE FLUSH medications reviewed/updated as required Review of Systems - Review of Systems All systems: negative Gastrointestinal: abdominal pain, nausea Exam - Constitutional Vital Signs: Temp Pulse Resp BP Pulse Ox 98.5 F 57 L 20 146/65 98 08/14/18 07:22 08/14/18 09:36 08/14/18 07:22 08/14/18 09:36 08/14/18 07:22 General appearance: no acute distress - EENT Eyes: PERRL, EOM intact ENT: hearing intact - Respiratory Respiratory: bilateral: CTA - Cardiovascular Rhythm: regular - Gastrointestinal General gastrointestinal: Present: soft, tender (slight TTP in epigastric area), non-distended, normal bowel sounds - Neurologic Neurological: alert and oriented x3 - Labs CBC & Chem 7: 08/13/18 02:49 08/14/18 10:31 Lab Results: Laboratory Results - last 24 hr 08/14/18 10:31 Potassium 4.6 D Magnesium 1.80 Assessment and Plan 1.acute pancreatitis -afebrile -WBC 12.2-trending down -H/H WNL -LFTs WNL -lipase 976 on admission -CTA abdomen w/o acute process (pancreas normal) -abd U/S w/o gallstones or biliary dilation -etiology unclear (patient admits to a remote hx of ETOH abuse but reports no alcohol x 2 years since 2017) -clinically, patient reports feeling better with abd pain improving. No N/V. Tolerating liquids. -will order triglyceride level and IgG4 in am to r/o other causes -CRP and repeat lipase in am -continue liquids for now -start on daily PPI -continue to trend labs and supportive care (IVFs, pain medications, antiemetics, empiric antibiotics, etc.) -continued alcohol cessation discussed/encouraged with patient along with smoking cessation -will follow 2.SIRS 3.HTN 4.nicotine dependence <MARINE MARCELO - Last Filed: 08/14/18 21:02> Medications and Allergies Active Meds: Active Medications Acetaminophen (Tylenol) 650 mg PO Q4H PRN PRN Reason: Pain MILD(1-3)/Fever >100.5/[place] Last Admin: 08/13/18 09:37 Dose: 650 mg Documented by: Acetaminophen/Hydrocodone Bitart ([place] 10/325) 1 each PO Q6H PRN PRN Reason: Pain, Moderate (4-6) Albuterol (Proventil) 2.5 mg IH Q4HRT PRN PRN Reason: Shortness Of Breath Aspirin (Aspirin) 325 mg PO DAILY COUNT INCLUDES THE [facility] Last Admin: 08/14/18 09:35 Dose: 325 mg Documented by: Atorvastatin Calcium (Lipitor) 20 mg PO QHS COUNT INCLUDES THE [facility] Last Admin: 08/13/18 22:13 Dose: 20 mg Documented by: Enoxaparin Sodium (Lovenox) 40 mg SUB-Q QDAY@2200 COUNT INCLUDES THE [facility] Last Admin: 08/13/18 22:14 Dose: 40 mg Documented by: Hydralazine HCl (Apresoline) 10 mg IV Q6H PRN PRN Reason: SBP > 155 Last Admin: 08/14/18 13:04 Dose: 10 mg Documented by: Hydrochlorothiazide (Hctz) 25 mg PO QDAY COUNT INCLUDES THE [facility] Last Admin: 08/14/18 09:36 Dose: 25 mg Documented by: Hydromorphone HCl (Dilaudid) 0.5 mg IV Q3H PRN PRN Reason: Pain , Severe (7-10) Last Admin: 08/13/18 13:15 Dose: 0.5 mg Documented by: Levofloxacin/Dextrose (Levaquin 500mg/100ml) 500 mg in 100 mls @ 100 mls/hr IV Q24H COUNT INCLUDES THE [facility]; Protocol Last Admin: 08/14/18 18:32 Dose: 100 mls/hr Documented by: Lisinopril (Zestril) 20 mg PO QDAY COUNT INCLUDES THE [facility] Last Admin: 08/14/18 09:36 Dose: 20 mg Documented by: Nicotine (Habitrol) 7 mg TD QDAY COUNT INCLUDES THE [facility] Last Admin: 08/14/18 09:36 Dose: Not Given Documented by: Ondansetron HCl (Zofran) 4 mg IV Q8H PRN PRN Reason: Nausea And Vomiting Last Admin: 08/14/18 18:36 Dose: 4 mg Documented by: Pantoprazole Sodium (Protonix) 40 mg PO QDAY COUNT INCLUDES THE [facility] Last Admin: 08/14/18 13:04 Dose: 40 mg Documented by: Sertraline HCl (Zoloft) 50 mg PO DAILY COUNT INCLUDES THE [facility] Last Admin: 08/14/18 09:36 Dose: 50 mg Documented by: Sodium Chloride (Sodium Chloride Flush Syringe 10 Ml) 10 ml IV BID COUNT INCLUDES THE [facility] Last Admin: 08/14/18 09:36 Dose: 10 ml Documented by: Sodium Chloride (Sodium Chloride Flush Syringe 10 Ml) 10 ml IV PRN PRN PRN Reason: LINE FLUSH Exam - Constitutional Vital Signs: Temp Pulse Resp BP Pulse Ox 99.1 F 58 L 20 162/74 99 08/14/18 12:49 08/14/18 12:53 08/14/18 12:49 08/14/18 13:04 08/14/18 12:53 - Labs CBC & Chem 7: 08/13/18 02:49 08/14/18 10:31 Lab Results: Laboratory Results - last 24 hr 08/14/18 10:31 Potassium 4.6 D Magnesium 1.80 Assessment and Plan Patient seen and examined. I have reviewed the advanced practitioner's evaluation, assessment, and plan, and agree with them. I note the following additions: patient clinically improving and her abd tenderness is only moderate on exam today. Continue supportive care Advance diet as tolerated Etiology unclear, awaiting further labs in AM
--- NOTE | 2018-08-14 12:14 | Progress Note ---
Assessment and Plan Assessment and plan: Assessment: 68 Y.O. female presented to ED on 08/12/18 with c/o of acute abdominal pain, admitted for Acute Pancreatitis. At the time of my assessment patient is awake, alert and oriented 3, sitting up in bed and watching TV. Patient's LUQ and LLQ pain is improving. Patient was able to tolerate clear liquid diet with no complaints of nausea or emesis. SIRS Acute Prancreatitis HTN Pain Mgmt Nicotine Abuse Plan: Continue IVF, and advancing diet as tolerated Continue pain management Continue levaquin GI consulted and following recommendations appreciated Start on Protonix per GI Pending Labs triglyceride and IgG Continue antihypertensive regimen and monitor BP Continue to encourage smoking cessation Continue DVT prophylaxis History Interval history: Patient states that her abdominal pain is improving her current pain level is 2/10. She denies episodes of emesis and nausea. There were no acute overnight events. Hospitalist Physical - Constitutional Vitals: Temp Pulse Resp BP Pulse Ox 98.5 F 57 L 20 146/65 98 08/14/18 07:22 08/14/18 09:36 08/14/18 07:22 08/14/18 09:36 08/14/18 07:22 General appearance: Present: no acute distress - EENT Eyes: Present: PERRL, EOM intact ENT: hearing intact - Neck Neck: Present: supple, normal ROM - Respiratory Respiratory: bilateral: CTA - Cardiovascular Rhythm: regular Heart Sounds: Present: S1 & S2 - Extremities Extremities: pulses intact, pulses symmetrical - Abdominal General gastrointestinal: soft, tender (mild tenderness to LUQ and LLQ) Localized gastrointestinal: tender: LUQ (mild ), LLQ (mild) - Integumentary Integumentary: Present: clear, warm, dry - Psychiatric Psychiatric: appropriate mood/affect, cooperative - Neurologic Neurologic: CNII-XII intact Results - Labs CBC & Chem 7: 08/13/18 02:49 08/14/18 10:31 Labs: Laboratory Last Values WBC 12.2 K/mm3 (4.5-11.0) H 08/13/18 02:49 RBC 4.21 M/mm3 (3.65-5.03) 08/13/18 02:49 Hgb 11.0 gm/dl (10.1-14.3) 08/13/18 02:49 Hct 34.1 % (30.3-42.9) 08/13/18 02:49 MCV 81 fl (79-97) 08/13/18 02:49 MCH 26 pg (28-32) L 08/13/18 02:49 MCHC 32 % (30-34) 08/13/18 02:49 RDW 15.8 % (13.2-15.2) H 08/13/18 02:49 Plt Count 220 K/mm3 (140-440) 08/13/18 02:49 Lymph % (Auto) 17.5 % (13.4-35.0) 08/13/18 02:49 [place] % (Auto) 6.5 % (0.0-7.3) 08/13/18 02:49 Eos % (Auto) 0.2 % (0.0-4.3) 08/13/18 02:49 Baso % (Auto) 0.4 % (0.0-1.8) 08/13/18 02:49 Lymph # 2.1 K/mm3 (1.2-5.4) 08/13/18 02:49 [place] # 0.8 K/mm3 (0.0-0.8) 08/13/18 02:49 Eos # 0.0 K/mm3 (0.0-0.4) 08/13/18 02:49 Baso # 0.0 K/mm3 (0.0-0.1) 08/13/18 02:49 Seg Neutrophils % 75.4 % (40.0-70.0) H 08/13/18 02:49 Seg Neutrophils # 9.2 K/mm3 (1.8-7.7) H 08/13/18 02:49 PT 11.6 Sec. (12.2-14.9) L 08/12/18 07:31 INR 0.80 (0.87-1.13) L 08/12/18 07:31 APTT 23.0 Sec. (24.2-36.6) L 08/12/18 07:31 D-Dimer 1003.05 ng/mlDDU (0-234) H 08/12/18 07:31 Sodium 137 mmol/L (137-145) 08/13/18 02:49 Potassium 4.6 mmol/L (3.6-5.0) D 08/14/18 10:31 Chloride 102.4 mmol/L (98-107) 08/13/18 02:49 Carbon Dioxide 23 mmol/L (22-30) 08/13/18 02:49 Anion Gap 15 mmol/L 08/13/18 02:49 BUN 8 mg/dL (7-17) 08/13/18 02:49 Creatinine 0.6 mg/dL (0.7-1.2) L 08/13/18 02:49 Estimated GFR > 60 ml/min 08/13/18 02:49 BUN/Creatinine Ratio 13 % 08/13/18 02:49 Glucose 77 mg/dL (65-100) 08/13/18 02:49 Calcium 8.8 mg/dL (8.4-10.2) 08/13/18 02:49 Magnesium 1.80 mg/dL (1.7-2.3) 08/14/18 10:31 Total Bilirubin 0.40 mg/dL (0.1-1.2) 08/13/18 02:49 Direct Bilirubin < 0.2 mg/dL (0-0.2) 08/12/18 07:31 AST 14 units/L (5-40) 08/13/18 02:49 ALT 7 units/L (7-56) 08/13/18 02:49 Alkaline Phosphatase 45 units/L (35-129) 08/13/18 02:49 Total Creatine Kinase 77 units/L (30-135) 08/12/18 07:31 CK-MB (CK-2) 1.7 ng/mL (0.0-4.0) 08/12/18 07:31 CK-MB (CK-2) Rel Index 2.2 (0-4) 08/12/18 07:31 Troponin T < 0.010 ng/mL (0.00-0.029) 08/12/18 07:31 NT-Pro-B Natriuret Pep 168.0 pg/mL (0-900) 08/12/18 07:31 Total Protein 6.2 g/dL (6.3-8.2) L 08/13/18 02:49 Albumin 3.3 g/dL (3.9-5) L 08/13/18 02:49 Albumin/Globulin Ratio 1.1 % 08/13/18 02:49 Lipase 976 units/L (13-60) H 08/12/18 07:31 Urine Color Yellow (Yellow) 08/12/18 11:40 Urine Turbidity Clear (Clear) 08/12/18 11:40 Urine pH 6.0 (5.0-7.0) 08/12/18 11:40 Ur Specific [place] 1.060 (1.003-1.030) H 08/12/18 11:40 Urine Protein <15 mg/dl mg/dL (Negative) 08/12/18 11:40 Urine Glucose (UA) Neg mg/dL (Negative) 08/12/18 11:40 Urine Ketones Neg mg/dL (Negative) 08/12/18 11:40 Urine Blood Neg (Negative) 08/12/18 11:40 Urine Nitrite Pos (Negative) 08/12/18 11:40 Urine Bilirubin Neg (Negative) 08/12/18 11:40 Urine Urobilinogen < 2.0 mg/dL (<2.0) 08/12/18 11:40 Ur Leukocyte Esterase Neg (Negative) 08/12/18 11:40 Urine WBC (Auto) 1.0 /HPF (0.0-6.0) 08/12/18 11:40 Urine RBC (Auto) 4.0 /HPF (0.0-6.0) 08/12/18 11:40 U Epithel Cells (Auto) 1.0 /HPF (0-13.0) 08/12/18 11:40 Urine Bacteria (Auto) 1+ /HPF (Negative) 08/12/18 11:40 Urine Mucus Few /HPF 08/12/18 11:40 Blood Type B POSITIVE 08/12/18 07:31 Antibody Screen Negative 08/12/18 07:31 Active Medications - Current Medications Current Medications: Generic Name Dose Route Start Last Admin Trade Name Freq PRN Reason Stop Dose Admin Acetaminophen 650 mg 08/12/18 13:34 08/13/18 09:37 Tylenol PO 650 mg Q4H PRN Administration Pain MILD(1-3)/Fever >100.5/SALCIDO Acetaminophen/Hydrocodone Bitart 1 each 08/13/18 10:00 [place] 10/325 PO Q6H PRN Pain, Moderate (4-6) Albuterol 2.5 mg 08/12/18 13:34 Proventil IH Q4HRT PRN Shortness Of Breath Aspirin 325 mg 08/13/18 10:00 08/14/18 09:35 Aspirin PO 325 mg DAILY SULEMA Administration Atorvastatin Calcium 20 mg 08/12/18 22:00 08/13/18 22:13 Lipitor PO 20 mg QHS SULEMA Administration Enoxaparin Sodium 40 mg 08/12/18 22:00 08/13/18 22:14 Lovenox SUB-Q 40 mg QDAY@2200 SULEMA Administration Hydralazine HCl 10 mg 08/12/18 17:27 Apresoline IV Q6H PRN SBP > 155 Hydrochlorothiazide 25 mg 08/13/18 10:00 08/14/18 09:36 Hctz PO 25 mg QDAY SULEMA Administration Hydromorphone HCl 0.5 mg 08/13/18 09:39 08/13/18 13:15 Dilaudid IV 0.5 mg Q3H PRN Administration Pain , Severe (7-10) Sodium Chloride 1,000 mls @ 75 mls/hr 08/12/18 14:00 08/14/18 09:40 Nacl 0.45% 1000 Ml IV 75 mls/hr DIRECT SULEMA Administration Levofloxacin/Dextrose 500 mg in 100 mls @ 100 mls/hr 08/12/18 18:00 08/13/18 21:09 Levaquin 500mg/100ml IV 100 mls/hr Q24H SULEMA Administration Protocol Lisinopril 20 mg 08/13/18 13:00 08/14/18 09:36 Zestril PO 20 mg QDAY SULEMA Administration Nicotine 7 mg 08/13/18 13:00 08/14/18 09:36 Habitrol TD Not Given QDAY [facility] Ondansetron HCl 4 mg 08/12/18 13:34 08/13/18 23:48 Zofran IV 4 mg Q8H PRN Administration Nausea And Vomiting Pantoprazole Sodium 40 mg 08/14/18 12:00 Protonix PO QDAY SULEMA Sertraline HCl 50 mg 08/13/18 10:00 08/14/18 09:36 Zoloft PO 50 mg DAILY SULEMA Administration Sodium Chloride 10 ml 08/12/18 22:00 08/14/18 09:36 Sodium Chloride Flush Syringe 10 Ml IV 10 ml BID SULEMA Administration Sodium Chloride 10 ml 08/12/18 13:34 Sodium Chloride Flush Syringe 10 Ml IV PRN PRN LINE FLUSH Nutrition/Malnutrition Assess - Dietary Evaluation Nutrition/Malnutrition Findings: Nutrition Notes Start: 08/13/18 10: 20 Freq: Status: Active Protocol: Document 08/13/18 10:20 SANCHEZ (Rec: 08/13/18 10:20 SANCHEZ [id number] [email or web address]) Nutrition Notes 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 Will assess upon further consult or LOS.
[2018-08-14] MEDS: PROTONIX PO SCH (13:04)
[2018-08-14] MEDS: LEVAQUIN 500MG/100ML 500 MG/100 ML BAG IV SCH (18:32)
[2018-08-14] MEDS: ZOFRAN IV PRN (18:36)
[2018-08-14] MEDS: DILAUDID IV PRN (21:17)
[2018-08-14] MEDS: LOVENOX SUB-Q SCH (21:19)
[2018-08-15 05:50] LABS: Basophils # (Auto) 0.1 K/mm3 (0.0-0.1); Basophils % (Auto) 0.8 % (0.0-1.8); Eosinophils % (Auto) 0.5 % (0.0-4.3); Hematocrit 35.5 % (30.3-42.9); Hemoglobin 11.7 gm/dl (10.1-14.3); Lymphocytes % (Auto) 29.5 % (13.4-35.0); Mean Corpuscular HGB Conc 33 % (30-34); Mean Corpuscular Volume 82 fl (79-97); Monocytes # (Auto) 0.6 K/mm3 (0.0-0.8); Monocytes % (Auto) 9.5 % (0.0-7.3); Platelet Count 208 K/mm3 (140-440); Red Blood Count 4.36 M/mm3 (3.65-5.03); Red Cell Distribution Width 15.6 % (13.2-15.2)
[2018-08-15 06:13] LABS: Alanine Aminotransferase 9 units/L (7-56); Albumin 3.4 g/dL (3.9-5); BUN/Creatinine Ratio 6; Blood Urea Nitrogen 4 mg/dL (7-17); Calcium 9.4 mg/dL (8.4-10.2); Hemolysis Index 8
[2018-08-15] MEDS: ZESTRIL PO SCH (09:21)
[2018-08-15] MEDS: HABITROL TD SCH (09:22)
[2018-08-15] MEDS: PROTONIX PO SCH (09:22)
[2018-08-15] MEDS: SODIUM CHLORIDE FLUSH SYRINGE 10 ML IV SCH (09:22)
[2018-08-15] MEDS: ASPIRIN PO SCH (09:22)
[2018-08-15] MEDS: ZOLOFT PO SCH (09:22)
[2018-08-15] MEDS: HCTZ PO SCH (09:22)
--- NOTE | 2018-08-15 09:56 | Gastroenterology Progress Note ---
<EBONY DEL CASTILLO - Last Filed: 08/15/18 09:51> Assessment and Plan 1.acute pancreatitis -afebrile -WBC 6.6-trended down -H/H WNL -LFTs WNL -lipase 976 on admission, now 53 -CRP 2.30 -triglyceride level-87 -CTA abdomen w/o acute process (pancreas normal) -abd U/S w/o gallstones or biliary dilation -etiology unclear (patient admits to a remote hx of ETOH abuse but reports no alcohol x 2 years since 2017) -clinically, patient is stable. Reports feeling better with abd pain now resolved. No N/V. Tolerating regular diet. - IgG4 pending-f/u results in clinic -continue PPI -continue to trend labs and supportive care -continued alcohol cessation discussed/encouraged with patient along with smoking cessation -patient okay to be d/c per GI standpoint with f/u in clinic ~2 weeks for further evaluation/workup 2.SIRS 3.HTN 4.nicotine dependence Subjective Date of service: 08/15/18 Principal diagnosis: pancreatitis Interval history: Patient resting in bed this am w/o distress. Reports feeling better with abd pain resolved. No N/V. Tolerating regular diet. Objective - Constitutional Vitals: Temp Pulse Resp BP Pulse Ox 97.8 F 57 L 18 122/60 100 08/15/18 07:46 08/15/18 09:21 08/15/18 07:46 08/15/18 09:21 08/15/18 07:46 General appearance: no acute distress - EENT Eyes: PERRL, EOM intact ENT: hearing intact - Respiratory Respiratory: bilateral: CTA - Cardiovascular Rhythm: regular - Gastrointestinal General gastrointestinal: Present: soft, non-tender, non-distended, normal bowel sounds - Neurologic Neurological: alert and oriented x3 - Labs CBC & Chem 7: 08/15/18 05:11 08/15/18 05:11 Labs: Laboratory Results - last 24 hr 08/14/18 08/15/18 08/15/18 10:31 05:11 05:11 WBC 6.6 RBC 4.36 Hgb 11.7 Hct 35.5 MCV 82 MCH 27 L MCHC 33 RDW 15.6 H Plt Count 208 Lymph % (Auto) 29.5 [place] % (Auto) 9.5 H Eos % (Auto) 0.5 Baso % (Auto) 0.8 Lymph # 2.0 [place] # 0.6 Eos # 0.0 Baso # 0.1 Seg Neutrophils % 59.7 Seg Neutrophils # 4.0 Sodium 138 Potassium 4.6 D 3.8 Chloride 102.3 Carbon Dioxide 23 Anion Gap 17 BUN 4 L Creatinine 0.7 Estimated GFR > 60 BUN/Creatinine Ratio 6 Glucose 92 Calcium 9.4 Magnesium 1.80 Total Bilirubin 0.40 AST 17 ALT 9 Alkaline Phosphatase 48 C-Reactive Protein 2.30 H Total Protein 6.6 Albumin 3.4 L Albumin/Globulin Ratio 1.1 Triglycerides 87 Lipase 53 <MARINE MARCELO - Last Filed: 08/15/18 17:01> Assessment and Plan Patient seen and examined. I have reviewed the advanced practitioner's evaluation, assessment, and plan, and agree with them. I note the following additions: Patient feeling better, abd soft, ok for discharge with outpatient followup Objective - Constitutional Vitals: Temp Pulse Resp BP Pulse Ox 98.4 F 56 L 18 133/65 99 08/15/18 12:52 08/15/18 12:52 08/15/18 12:52 08/15/18 12:52 08/15/18 12:52 - Labs CBC & Chem 7: 08/15/18 05:11 08/15/18 05:11 Labs: Laboratory Results - last 24 hr 08/15/18 08/15/18 05:11 05:11 WBC 6.6 RBC 4.36 Hgb 11.7 Hct 35.5 MCV 82 MCH 27 L MCHC 33 RDW 15.6 H Plt Count 208 Lymph % (Auto) 29.5 [place] % (Auto) 9.5 H Eos % (Auto) 0.5 Baso % (Auto) 0.8 Lymph # 2.0 [place] # 0.6 Eos # 0.0 Baso # 0.1 Seg Neutrophils % 59.7 Seg Neutrophils # 4.0 Sodium 138 Potassium 3.8 Chloride 102.3 Carbon Dioxide 23 Anion Gap 17 BUN 4 L Creatinine 0.7 Estimated GFR > 60 BUN/Creatinine Ratio 6 Glucose 92 Calcium 9.4 Total Bilirubin 0.40 AST 17 ALT 9 Alkaline Phosphatase 48 C-Reactive Protein 2.30 H Total Protein 6.6 Albumin 3.4 L Albumin/Globulin Ratio 1.1 Triglycerides 87 Lipase 53
--- NOTE | 2018-08-15 13:09 | Discharge Summary ---
Providers - Providers Date of Admission: 08/12/18 13:34 Attending physician: ARPITA CASTELLANOS MD 08/12/18 13:34 Consult to Physician [CONS] Routine Comment: A/S NOTIFIED 1430 Consulting Provider: NIOM FLORES Physician Instructions: Reason For Exam: pancreatitis 08/13/18 18:00 Physical Therapy Evaluation and Treat [CONS] Routine Comment: Reason For Exam: weakness Primary care physician: MARY TURK Hospitalization Condition: Stable Hospital course: 68 Y.O. female presented to ED on 08/12/18 with c/o of acute abdominal pain, admitted for Acute Pancreatitis. Etiology of pancreatitis was unclear. Patient does not have history of alcohol abuse, she did not have gallstones, triglyceride levels were normal. She was seen by gastroenterology, had diet was advanced, she tolerated diet well. Her blood pressure medications were optimized. IgG4 sent , she'll follow up with GI for the results of tests. She was counseled on tobacco cessation, she was advised to continue abstinence from alcohol Diagnoses SIRS Acute Prancreatitis HTN urgency Pain Mgmt Nicotine Abuse Disposition: DC-01 TO HOME OR SELFCARE Time spent for discharge: 33 mins Core Measure Documentation - Palliative Care Palliative Care/ Comfort Measures: Not Applicable - Core Measures Any of the following diagnoses?: none Exam - Constitutional Vitals: Temp Pulse Resp BP Pulse Ox 97.8 F 57 L 18 122/60 100 08/15/18 07:46 08/15/18 10:00 08/15/18 07:46 08/15/18 09:21 08/15/18 10:00 General appearance: Present: no acute distress, well-nourished - EENT Eyes: Present: PERRL ENT: hearing intact, clear oral mucosa - Neck Neck: Present: supple, normal ROM - Respiratory Respiratory effort: normal Respiratory: bilateral: CTA - Cardiovascular Heart Sounds: Present: S1 & S2. Absent: rub, click - Extremities Extremities: pulses symmetrical, No edema Peripheral Pulses: within normal limits - Abdominal General gastrointestinal: Present: soft, non-tender, non-distended, normal bowel sounds Female genitourinary: Present: normal - Integumentary Integumentary: Present: clear, warm, dry - Musculoskeletal Musculoskeletal: gait normal, strength equal bilaterally - Psychiatric Psychiatric: appropriate mood/affect, intact judgment & insight - Neurologic Neurologic: CNII-XII intact, moves all extremities Plan Follow up with: MARY TURK [Other] - 3-5 Days MARINE MARCELO MD [Staff Physician] - 7 Days Prescriptions: Nicotine [Habitrol] 7 mg TD QDAY #30 patch Pantoprazole [Protonix TAB] 40 mg PO QDAY #30 tablet
[2018-08-15 13:50] VITALS: BP 133/65
== END 2018-08-15 16:10 | disposition home or self-care (01) | DRG 439 ==
LOC: ED 06:06 → 3A 13:34 → 2B-ACE 20:15
PROVIDERS: ADMIT Internal Medicine; ATTEND Internal Medicine
DX: K85.90 Acute pancreatitis without necrosis or infection, unspecified (principal); R65.10 Systemic inflammatory response syndrome (SIRS) of non-infectious origin without acute organ dysfunction; F17.213 Nicotine dependence, cigarettes, with withdrawal; R64 Cachexia; I10 Essential (primary) hypertension; M19.90 Unspecified osteoarthritis, unspecified site; F41.9 Anxiety disorder, unspecified; R91.1 Solitary pulmonary nodule; K57.30 Diverticulosis of large intestine without perforation or abscess without bleeding; I16.0 Hypertensive urgency; Z79.82 Long term (current) use of aspirin; Z82.49 Family history of ischemic heart disease and other diseases of the circulatory system; Z90.710 Acquired absence of both cervix and uterus; Z68.27 Body mass index [BMI] 27.0-27.9, adult
CPT/HCPCS: 36415; 71045; 71275; 74174; 76705; 80048; 80053; 80076; 81001; 82550; 82553; 83690; 83735; 83880; 84132; 84478; 84484; 85025; 85379; 85610; 85730; 86140; 86850; 86900; 86901; 93005; 93010; 96365; 96375; 96376; G0378; A9270-GY; J0360; J1170; J1650; J1956; J2405; J2765; J3480; J7030; Q9967

== ENCOUNTER 2019-10-23 02:54 | Observation (INO) | payer MEDICARE ==
[2019-10-23] MEDS ORDERED: SODIUM CHLORIDE 0.9% 1000 ML 1,000 ML IV ONE (03:56)
[2019-10-23] MEDS ORDERED: MORPHINE 4 MG/1 ML INJ IV ONE (03:56)
[2019-10-23] MEDS ORDERED: ONDANSETRON 4 MG/2 ML INJ IV ONE (03:56)
[2019-10-23 04:16] LABS: Bacteria,Urine 1+ /HPF (Negative); Bilirubin,Urine NEG (Negative); Blood,Urine NEG (Negative); Color,Urine Straw (Yellow); Mucus,Urine FEW /HPF; Urobilinogen,Urine < 2.0 mg/dL (<2.0)
[2019-10-23 04:19] LABS: Basophils % (Auto) 0.2 % (0.0-1.8); Eosinophils % (Auto) 0.2 % (0.0-4.3); Hematocrit 39.6 % (30.3-42.9); Hemoglobin 12.5 gm/dl (10.1-14.3); Lymphocytes # (Auto) 1.4 K/mm3 (1.2-5.4); Lymphocytes % (Auto) 10.4 % (13.4-35.0); Mean Corpuscular HGB Conc 32 % (30-34); Mean Corpuscular Volume 85 fl (79-97); Monocytes # (Auto) 0.8 K/mm3 (0.0-0.8); Monocytes % (Auto) 6.1 % (0.0-7.3); Platelet Count 228 K/mm3 (140-440); Red Blood Count 4.67 M/mm3 (3.65-5.03)
[2019-10-23 04:40] LABS: Alanine Aminotransferase 10 units/L (7-56); BUN/Creatinine Ratio 11; Blood Urea Nitrogen 8 mg/dL (7-17); Calcium 9.3 mg/dL (8.4-10.2); Hemolysis Index 33
--- NOTE | 2019-10-23 06:06 | Emergency Department Report ---
ED Abdominal Pain HPI - General Chief Complaint: Abdominal Pain Stated Complaint: ABDOMINAL PAIN,NAUSEA Time Seen by Provider: 10/23/19 03:48 Source: patient, EMS Mode of arrival: Wheelchair Limitations: No Limitations - History of Present Illness Initial Comments: Patient is a 69-year-old female presents emergency room with complaints of epigastric abdominal pain that began at 9 PM tonight. She has associated nausea and dry heaving. She denies any diarrhea, urinary symptoms, fever. She states that she had a normal bowel movement yesterday. She denies any sick contacts, recent travel, recent antibiotics. She has a past medical history of hype rtension and depression. She denies any allergies to medications. She states that she is a smoker. She denies alcohol use. It appears patient had pancreatitis in 2019, according to previous GI note she was previously a heavy drinker but quit in 2017. Severity scale (0 -10): 4 - Related Data Home Medications Medication Instructions Recorded Confirmed Last Taken hydroCHLOROthiazide [HCTZ] 25 mg PO QDAY 01/28/13 10/23/19 07/13/16 09:00 Aspirin 325 mg PO DAILY 08/12/18 10/23/19 Unknown AtorvaSTATin [Lipitor] 20 mg PO QHS 08/12/18 10/23/19 Unknown Enalapril Maleate (Nf) 10 mg PO DAILY 08/12/18 10/23/19 Unknown Sertraline [Zoloft] 50 mg PO DAILY 08/12/18 10/23/19 Unknown Previous Rx's Medication Instructions Recorded Last Taken Type Nicotine [Habitrol] 7 mg TD QDAY #30 patch 08/15/18 Unknown Rx Pantoprazole [Protonix TAB] 40 mg PO QDAY #30 tablet 08/15/18 Unknown Rx Allergies Allergy/AdvReac Type Severity Reaction Status Date / Time No Known Allergies Allergy Verified 01/26/16 10:01 ED Review of Systems ROS: Stated complaint: ABDOMINAL PAIN,NAUSEA Other details as noted in HPI Comment: All other systems reviewed and negative ED Past Medical Hx - Past Medical History Previous Medical History?: Yes Hx Hypertension: Yes () Hx Renal Disease: No Hx Arthritis: Yes Hx Seizures: No Hx Asthma: Yes (INHALERS PRN) Additional medical history: angina. anxiety attacks - Surgical History Past Surgical History?: Yes Hx Appendectomy: Yes Additional Surgical History: hysterectomy. left foot surgery - Social History Smoking Status: Current Every Day Smoker Substance Use Type: None - Medications Home Medications: Home Medications Medication Instructions Recorded Confirmed Last Taken Type hydroCHLOROthiazide [HCTZ] 25 mg PO QDAY 01/28/13 10/23/19 07/13/16 09:00 History Aspirin 325 mg PO DAILY 08/12/18 10/23/19 Unknown History AtorvaSTATin [Lipitor] 20 mg PO QHS 08/12/18 10/23/19 Unknown History Enalapril Maleate (Nf) 10 mg PO DAILY 08/12/18 10/23/19 Unknown History Sertraline [Zoloft] 50 mg PO DAILY 08/12/18 10/23/19 Unknown History Nicotine [Habitrol] 7 mg TD QDAY #30 patch 08/15/18 10/23/19 Unknown Rx Pantoprazole [Protonix TAB] 40 mg PO QDAY #30 tablet 08/15/18 10/23/19 Unknown Rx ED Physical Exam - General Limitations: No Limitations General appearance: alert, other (in moderate distress secondary to pain) - Head Head exam: Present: atraumatic, normocephalic - Eye Eye exam: Present: normal appearance - ENT ENT exam: Present: mucous membranes moist - Respiratory Respiratory exam: Present: normal lung sounds bilaterally. Absent: respiratory distress, wheezes, rales, rhonchi, stridor, chest wall tenderness, accessory muscle use, decreased breath sounds, prolonged expiratory - Cardiovascular Cardiovascular Exam: Present: regular rate, normal rhythm, normal heart sounds. Absent: systolic murmur, diastolic murmur, rubs, gallop - GI/Abdominal GI/Abdominal exam: Present: soft, tenderness (epigastric), normal bowel sounds. Absent: distended, guarding, rebound, rigid - Neurological Exam Neurological exam: Present: alert, oriented X3 - Psychiatric Psychiatric exam: Present: normal affect, normal mood - Skin Skin exam: Present: warm, dry, intact ED Course Vital Signs 10/23/19 10/23/19 10/23/19 02:55 06:54 08:04 Temperature 98.0 F 98.8 F Pulse Rate 54 L 73 84 Respiratory 20 18 15 Rate Blood Pressure 182/99 Blood Pressure 220/104 [Left] O2 Sat by Pulse 100 100 98 Oximetry 10/23/19 10/23/19 10/23/19 08:15 08:30 08:45 Temperature Pulse Rate 83 88 84 Respiratory 15 17 20 Rate Blood Pressure 136/62 127/66 131/62 Blood Pressure [Left] O2 Sat by Pulse 98 98 99 Oximetry 10/23/19 10/23/19 10/23/19 09:00 09:15 09:30 Temperature Pulse Rate 92 H 83 87 Respiratory 19 17 19 Rate Blood Pressure 131/64 125/67 129/60 Blood Pressure [Left] O2 Sat by Pulse 98 98 99 Oximetry 10/23/19 10/23/19 10/23/19 09:38 09:40 10:37 Temperature 98.7 F Pulse Rate 90 78 Respiratory 18 19 16 Rate Blood Pressure 129/60 158/80 Blood Pressure [Left] O2 Sat by Pulse 99 97 Oximetry - Consultations Consultation #1: 10/23/19 06:[address] Zuñiga, hospitalist regarding pt and results, will accept and resume care of patient, will admit to hospital, advised to bridge pt to med surg under Dr. Porter, oncoming hospitalist ED Medical Decision Making - Lab Data Result diagrams: 10/23/19 03:41 10/23/19 03:41 Lab Results 10/23/19 10/23/19 10/23/19 Range/Units 03:41 03:41 03:41 WBC 13.7 H (4.5-11.0) K/mm3 RBC 4.67 (3.65-5.03) M/mm3 Hgb 12.5 (10.1-14.3) gm/dl Hct 39.6 (30.3-42.9) % MCV 85 (79-97) fl MCH 27 L (28-32) pg MCHC 32 (30-34) % RDW 16.0 H (13.2-15.2) % Plt Count 228 (140-440) K/mm3 Lymph % (Auto) 10.4 L (13.4-35.0) % [place] % (Auto) 6.1 (0.0-7.3) % Eos % (Auto) 0.2 (0.0-4.3) % Baso % (Auto) 0.2 (0.0-1.8) % Lymph # 1.4 (1.2-5.4) K/mm3 [place] # 0.8 (0.0-0.8) K/mm3 Eos # 0.0 (0.0-0.4) K/mm3 Baso # 0.0 (0.0-0.1) K/mm3 Seg Neutrophils % 83.1 H (40.0-70.0) % Seg Neutrophils # 11.4 H (1.8-7.7) K/mm3 Sodium 136 L (137-145) mmol/L Potassium 3.4 L (3.6-5.0) mmol/L Chloride 100.9 (98-107) mmol/L Carbon Dioxide 19 L (22-30) mmol/L Anion Gap 20 mmol/L BUN 8 (7-17) mg/dL Creatinine 0.7 (0.7-1.2) mg/dL Estimated GFR > 60 ml/min BUN/Creatinine Ratio 11 % Glucose 106 H (65-100) mg/dL Calcium 9.3 (8.4-10.2) mg/dL Total Bilirubin 0.20 (0.1-1.2) mg/dL AST 21 (5-40) units/L ALT 10 (7-56) units/L Alkaline Phosphatase 81 (35-129) units/L Troponin T (0.00-0.029) ng/mL Total Protein 8.3 H (6.3-8.2) g/dL Albumin 4.0 (3.9-5) g/dL Albumin/Globulin Ratio 0.9 % Lipase > 1284 H (13-60) units/L Urine Color Straw (Yellow) Urine Turbidity Clear (Clear) Urine pH 7.0 (5.0-7.0) Ur Specific [place] 1.008 (1.003-1.030) Urine Protein 30 mg/dl (Negative) mg/dL Urine Glucose (UA) Neg (Negative) mg/dL Urine Ketones Neg (Negative) mg/dL Urine Blood Neg (Negative) Urine Nitrite Neg (Negative) Urine Bilirubin Neg (Negative) Urine Urobilinogen < 2.0 (<2.0) mg/dL Ur Leukocyte Esterase Neg (Negative) Urine WBC (Auto) 1.0 (0.0-6.0) /HPF Urine RBC (Auto) 4.0 (0.0-6.0) /HPF U Epithel Cells (Auto) < 1.0 (0-13.0) /HPF Urine Bacteria (Auto) 1+ (Negative) /HPF Urine Mucus Few /HPF 06/17/20 Range/Units 03:59 WBC (4.5-11.0) K/mm3 RBC (3.65-5.03) M/mm3 Hgb (10.1-14.3) gm/dl Hct (30.3-42.9) % MCV (79-97) fl MCH (28-32) pg MCHC (30-34) % RDW (13.2-15.2) % Plt Count (140-440) K/mm3 Lymph % (Auto) (13.4-35.0) % [place] % (Auto) (0.0-7.3) % Eos % (Auto) (0.0-4.3) % Baso % (Auto) (0.0-1.8) % Lymph # (1.2-5.4) K/mm3 [place] # (0.0-0.8) K/mm3 Eos # (0.0-0.4) K/mm3 Baso # (0.0-0.1) K/mm3 Seg Neutrophils % (40.0-70.0) % Seg Neutrophils # (1.8-7.7) K/mm3 Sodium (137-145) mmol/L Potassium (3.6-5.0) mmol/L Chloride (98-107) mmol/L Carbon Dioxide (22-30) mmol/L Anion Gap mmol/L BUN (7-17) mg/dL Creatinine (0.7-1.2) mg/dL Estimated GFR ml/min BUN/Creatinine Ratio % Glucose (65-100) mg/dL Calcium (8.4-10.2) mg/dL Total Bilirubin (0.1-1.2) mg/dL AST (5-40) units/L ALT (7-56) units/L Alkaline Phosphatase (35-129) units/L Troponin T < 0.010 (0.00-0.029) ng/mL Total Protein (6.3-8.2) g/dL Albumin (3.9-5) g/dL Albumin/Globulin Ratio % Lipase (13-60) units/L Urine Color (Yellow) Urine Turbidity (Clear) Urine pH (5.0-7.0) Ur Specific [place] (1.003-1.030) Urine Protein (Negative) mg/dL Urine Glucose (UA) (Negative) mg/dL Urine Ketones (Negative) mg/dL Urine Blood (Negative) Urine Nitrite (Negative) Urine Bilirubin (Negative) Urine Urobilinogen (<2.0) mg/dL Ur Leukocyte Esterase (Negative) Urine WBC (Auto) (0.0-6.0) /HPF Urine RBC (Auto) (0.0-6.0) /HPF U Epithel Cells (Auto) (0-13.0) /HPF Urine Bacteria (Auto) (Negative) /HPF Urine Mucus /HPF - EKG Data EKG shows normal: sinus rhythm, axis, intervals, QRS complexes, ST-T waves Rate: tachycardia - EKG Data 10/23/19 06:06 PVCs no STEMI - Radiology Data Radiology results: report reviewed CT ABDOMEN AND PELVIS WITH CONTRAST INDICATION: Pt complains of epigastric abdominal pain. possible Pancreatitis. Omnipaqque 300 / 100ml's was used for this exam.. TECHNIQUE: Axial CT images were obtained through the abdomen and pelvis after 100 cc Omnipaque [address] scans at this location are performed using CT dose reduction for ALARA by means of automated exposure control. COMPARISON: CTA abdomen 08/12/2018 FINDINGS: LOWER CHEST: No significant abnormality. LIVER: Multiple calcified hepatic granulomas GALLBLADDER: No significant abnormality. BILE DUCTS: No significant abnormality. PANCREAS: Edematous pancreas with small amount of peripancreatic fluid. No pancreatic necrosis SPLEEN: Numerous calcified splenic granulomas ADRENALS: No significant abnormality. RIGHT KIDNEY and URETER: No significant abnormality. LEFT KIDNEY and URETER: No significant abnormality. STOMACH and SMALL BOWEL: No significant abnormality. COLON: Extensive zamudio colonic diverticulosis, unchanged. APPENDIX: No significant abnormality. PERITONEUM: No free fluid. No free air. No fluid collection. LYMPH NODES: No significant adenopathy. AORTA and ARTERIES: No significant abnormality. IVC and VEINS: No significant abnormality. URINARY BLADDER: No significant abnormality. REPRODUCTIVE ORGANS: Surgically absent ADDITIONAL FINDINGS: None. SKELETAL SYSTEM: Advanced degenerative changes of lower lumbar spine CPPD arthropathy of both hips, right greater than left. IMPRESSION: 1. Mild acute pancreatitis. 2. Extensive colonic diverticulosis, unchanged Signer Name: Sandor Win MD Signed: 10/23/2019 6:36 AM Workstation Name: [id number] Transcribed By: TL Dictated By: Sandor Win MD Electronically Authenticated By: Sandor Win MD Signed Date/Time: 10/23/19635 DD/ 2 TD/TT: - Medical Decision Making Patient is a 69-year-old female presents emergency room with complaints of epigastric abdominal pain that began at 9 PM tonight. She has associated nausea and dry heaving. She denies any diarrhea, urinary symptoms, fever. She states that she had a normal bowel movement yesterday. She denies any sick contacts, recent travel, recent antibiotics. She has a past medical history of hypertension and depression. She denies any allergies to medications. She states that she is a smoker. She denies alcohol use. It appears patient had pancreatitis in 2019, according to previous GI note she was previously a heavy drinker but quit in 2017. vitals with elevated bp otherwise stable. on exam: epigastric ttp, no guarding, no rebound, no peritoneal signs. CT abd pelvis: 1. Mild acute pancreatitis. 2. Extensive colonic diverticulosis, unchanged. Labs significant for white blood cell count of 13,000 and lipase greater than 1282. Findings consistent with acute pancreatitis. Patient given IV fluids, pain medication, nausea medication and symptoms were improving. Patient will be admitted for acute pancreatitis. spoke to Dr. Zuñiga, hospitalist regarding pt and results, will accept and resume care of patient, will admit to hospital, advised to bridge pt to med surg under Dr. Porter, oncoming hospitalist - Differential Diagnosis Pancreatitis, bowel obstruction, PUD, GERD, cholecystitis, ACS, gastritis Critical care attestation.: If time is entered above; I have spent that time in minutes in the direct care of this critically ill patient, excluding procedure time. ED Disposition Clinical Impression: Epigastric abdominal pain, Nausea Acute pancreatitis Qualifiers: Pancreatitis type: unspecified pancreatitis type Acute pancreatitis complication: unspecified Qualified Code(s): K85.90 - Acute pancreatitis without necrosis or infection, unspecified Disposition: 09 OP ADMIT IP TO THIS HOSP Is pt being admited?: Yes Does the pt Need Aspirin: No Condition: Fair Time of Disposition: 07:03
--- NOTE | 2019-10-23 06:40 | Cat Scan Report ---
CT ABDOMEN AND PELVIS WITH CONTRAST INDICATION: Pt complains of epigastric abdominal pain. possible Pancreatitis. Omnipaqque 300 / 100ml's was used for this exam.. TECHNIQUE: Axial CT images were obtained through the abdomen and pelvis after 100 cc Omnipaque [address] scans at this location are performed using CT dose reduction for ALARA by means of automated exposure control. COMPARISON: CTA abdomen 08/12/2018 FINDINGS: LOWER CHEST: No significant abnormality. LIVER: Multiple calcified hepatic granulomas GALLBLADDER: No significant abnormality. BILE DUCTS: No significant abnormality. PANCREAS: Edematous pancreas with small amount of peripancreatic fluid. No pancreatic necrosis SPLEEN: Numerous calcified splenic granulomas ADRENALS: No significant abnormality. RIGHT KIDNEY and URETER: No significant abnormality. LEFT KIDNEY and URETER: No significant abnormality. STOMACH and SMALL BOWEL: No significant abnormality. COLON: Extensive zamudio colonic diverticulosis, unchanged. APPENDIX: No significant abnormality. PERITONEUM: No free fluid. No free air. No fluid collection. LYMPH NODES: No significant adenopathy. AORTA and ARTERIES: No significant abnormality. IVC and VEINS: No significant abnormality. URINARY BLADDER: No significant abnormality. REPRODUCTIVE ORGANS: Surgically absent ADDITIONAL FINDINGS: None. SKELETAL SYSTEM: Advanced degenerative changes of lower lumbar spine CPPD arthropathy of both hips, r ight greater than left. IMPRESSION: 1. Mild acute pancreatitis. 2. Extensive colonic diverticulosis, unchanged Signer Name: Sandor Win MD Signed: 10/23/2019 6:36 AM Workstation Name: [id number]
[2019-10-23] MEDS ORDERED: HYDROmorphone 1 MG/1 ML INJ IV ONE (07:02)
--- NOTE | 2019-10-23 07:25 | History and Physical Report ---
History of Present Illness Date of examination: 10/23/19 Date of admission: 10/23/2019 Chief complaint: Abdominal pain and nausea since last night History of present illness: Very pleasant 69-year-old female patient with significant past medical history of hypertension ,depression, dyslipidemia And ongoing tobacco use presented to the emergency room with abdominal pain, epigastric and umbilical area associated with Nausea and vomiting since last night around 9 PM No hematemesis or melena, no rectal bleeding No history of sick contacts, no history of eating new foods or travel Patient has history of hypertension dyslipidemia and depression Claims compliance with his medications No history of fever shortness of breath or cough No history of chest pain Initial work-up in the ED findings consistent with acute pancreatitis with elevated lipase, and CT findings The time of my evaluation patient feels slightly better than this morning Past History Past Medical History: arthritis, hypertension, hyperlipidemia, other (De pression, asthma) Past Surgical History: appendectomy, hysterectomy, Other (Left foot surgery) Social history: smoking, full code. denies: alcohol abuse, prescription drug abuse Family history: hypertension Medications and Allergies Allergies Allergy/AdvReac Type Severity Reaction Status Date / Time No Known Allergies Allergy Verified 01/26/16 10:01 Home Medications Medication Instructions Recorded Confirmed Last Taken Type hydroCHLOROthiazide [HCTZ] 25 mg PO QDAY 01/28/13 10/23/19 07/13/16 09:00 History Aspirin 325 mg PO DAILY 08/12/18 10/23/19 Unknown History AtorvaSTATin [Lipitor] 20 mg PO QHS 08/12/18 10/23/19 Unknown History Enalapril Maleate (Nf) 10 mg PO DAILY 08/12/18 10/23/19 Unknown History Sertraline [Zoloft] 50 mg PO DAILY 08/12/18 10/23/19 Unknown History Nicotine [Habitrol] 7 mg TD QDAY #30 patch 08/15/18 10/23/19 Unknown Rx Pantoprazole [Protonix TAB] 40 mg PO QDAY #30 tablet 08/15/18 10/23/19 Unknown Rx Review of Systems Constitutional: fatigue, weakness, no weight loss, no weight gain, no fever, no chills Ears, nose, mouth and throat: no ear pain, no nasal congestion, no nasal discharge Cardiovascular: no chest pain, no orthopnea, no palpitations Respiratory: no cough, no shortness of breath Gastrointestinal: abdominal pain, nausea, vomiting, no hematemesis, no melena, no hematochezia Genitourinary Female: no flank pain, no dysuria Musculoskeletal: no myalgias, no arthritis Integumentary: no rash, no lesions Neurological: weakness, no seizures, no syncope Psychiatric: depression, no anxiety Endocrine: no cold intolerance Hematologic/Lymphatic: no easy bruising, no easy bleeding Allergic/Immunologic: no urticaria, no allergic rhinitis Exam - Constitutional Vitals: Temp Pulse Resp BP Pulse Ox 98.8 F 73 18 220/104 100 10/23/19 06:54 10/23/19 06:54 10/23/19 06:54 10/23/19 06:54 10/23/19 06:54 General appearance: Present: mild distress, well-nourished - EENT Eyes: Present: PERRL, EOM intact - Neck Neck: Present: supple, normal ROM - Respiratory Respiratory effort: normal Respiratory: bilateral: diminished, negative: rales, rhonchi, wheezing - Cardiovascular Rhythm: regular Heart Sounds: Present: S1 & S2 - Extremities Extremities: no ischemia, No edema - Abdominal General gastrointestinal: Present: soft, tender (No guarding no rigidity), non- distended, normal bowel sounds - Integumentary Integumentary: Present: clear, warm - Musculoskeletal Musculoskeletal: strength equal bilaterally, generalized weakness - Psychiatric Psychiatric: appropriate mood/affect, cooperative - Neurologic Neurologic: moves all extremities HEART Score - HEART Score Troponin: Troponin T < 0.010 ng/mL (0.00-0.029) 10/23/19 03:59 Results - Labs CBC & Chem 7: 10/23/19 03:41 10/23/19 03:41 Labs: Abnormal lab results 10/23/19 10/23/19 Range/Units 03:41 03:41 WBC 13.7 H (4.5-11.0) K/mm3 MCH 27 L (28-32) pg RDW 16.0 H (13.2-15.2) % Lymph % (Auto) 10.4 L (13.4-35.0) % Seg Neutrophils % 83.1 H (40.0-70.0) % Seg Neutrophils # 11.4 H (1.8-7.7) K/mm3 Sodium 136 L (137-145) mmol/L Potassium 3.4 L (3.6-5.0) mmol/L Carbon Dioxide 19 L (22-30) mmol/L Glucose 106 H (65-100) mg/dL Total Protein 8.3 H (6.3-8.2) g/dL Lipase > 1284 H (13-60) units/L Assessment and Plan --Acute pancreatitis; N.p.o. status, IV fluids, pain medications Abdominal ultrasound to check for gallbladder/rule out cholelithiasis GI consult --Hypertensive urgency; Resume antihypertensives, PRN medications --Leukocytosis; secondary to pancreatitis Closely monitor --History of depression; Antidepressants when patient is able to take oral --Ongoing tobacco use; Smoking cessation counseling, nicotine patch as needed --Dyslipidemia; hold statin Resume when patient is able to take oral --DVT prophylaxis; Lovenox Monitor closely and adjust management as needed Follow GI evaluation and recommendations I spent 50 minutes coordinating this admission
[2019-10-23] MEDS ORDERED: MORPHINE 2 MG/1 ML INJ IV PRN (07:27)
[2019-10-23] MEDS ORDERED: ONDANSETRON 4 MG/2 ML INJ IV PRN (07:27)
[2019-10-23] MEDS ORDERED: hydrALAZINE 20 MG/1 ML INJ IV PRN (07:32)
[2019-10-23] MEDS ORDERED: hydrALAZINE 20 MG/1 ML INJ IV ONE (08:00)
[2019-10-23] MEDS ORDERED: cloNIDine TTS 0.1 MG/24 HR PATCH TD SCH (10:00)
--- NOTE | 2019-10-23 10:33 | Ultrasound Report ---
ULTRASOUND ABDOMEN, COMPLETE INDICATION: Acute pancreatitis. COMPARISON: No relevant prior imaging study available. FINDINGS: Pancreas: No significant abnormality. Abdominal Aorta: Borderline ectatic measuring 2.6 cm AP with moderate atherosclerotic disease. IVC: N o significant abnormality. Liver: No significant abnormality. Normal hepatopedal blood flow in the main portal vein. Gallbladder: Mild gallbladder sludge. Bile ducts: No significant abnormality. Common bile duct measures 3 mm. Kidneys: Right: No significant abnormality. Left: No significant abnormality. Spleen: No significant abnormality. Free fluid: None. Additional Findings: None. IMPRESSION: Mild gallbladder sludge, as above. Borderline ectatic infrarenal abdominal aorta, as above. Signer Name: Carlos Beckman MD Signed: 10/23/2019 10:29 AM Workstation Name: [id number]
[2019-10-23] MEDS: NICOTINE 14 MG/24 HR PATCH TD SCH (11:14)
[2019-10-23] MEDS: PANTOPRAZOLE 40 MG INJ IV SCH (11:16)
--- NOTE | 2019-10-23 11:51 | Consultation ---
History of Present Illness - Reason for Consult Consult date: 10/23/19 Pancreatitis Requesting physician: DEBORAH RUBIO - History of Present Illness Ms. Gonzalez is a 69-year-old woman admitted with pancreatitis. She was in her usual state of good health until approximately 9 PM last night when she developed crampy epigastric pain which progressed with nausea and dry heaves. This felt like her prior attack of pancreatitis in August 2018 and she presented to the emergency room, where the pancreatitis was confirmed with an elevated lipase. Her liver enzymes were normal. She was given IV fluids and pain meds and currently she is feeling much better with no pain but just fatigue. She is not nauseated. She had pancreatitis in August 2018 and was hospitalized for 1 or 2 days. Ultrasound was normal at that time and liver enzymes were also normal. Her triglycerides and calcium were normal. IgG4 subtype was normal as well. She has had no other attacks of pancreatitis. She used to drink 6-12 beers a day but she quit in 2016. In between the attacks, she has had no abdominal pain nausea or vomiting. Her weight has been stable. Her bowel movements occur once or twice a day without any change. There is no GI bleed. There is no fevers chills or sweats. Of note, patient is on hydrochlorothiazide as well as lisinopril and has been for several years. There is no family history of pancreatitis. Meds reviewed. Past History Past Medical History: hypertension Past Surgical History: hysterectomy, Other (Tubal ligation) Social history: smoking (Current). denies: alcohol abuse Family history: no significant family history Medications and Allergies Allergies Allergy/AdvReac Type Severity Reaction Status Date / Time No Known Allergies Allergy Verified 01/26/16 10:01 Home Medications Medication Instructions Recorded Confirmed Last Taken Type hydroCHLOROthiazide [HCTZ] 25 mg PO QDAY 01/28/13 10/23/19 07/13/16 09:00 History Aspirin 325 mg PO DAILY 08/12/18 10/23/19 Unknown History AtorvaSTATin [Lipitor] 20 mg PO QHS 08/12/18 10/23/19 Unknown History Enalapril Maleate (Nf) 10 mg PO DAILY 08/12/18 10/23/19 Unknown History Sertraline [Zoloft] 50 mg PO DAILY 08/12/18 10/23/19 Unknown History Nicotine [Habitrol] 7 mg TD QDAY #30 patch 08/15/18 10/23/19 Unknown Rx Pantoprazole [Protonix TAB] 40 mg PO QDAY #30 tablet 08/15/18 10/23/19 Unknown Rx Active Meds: Active Medications Clonidine HCl (Catapres-Tts Patch) 0.1 mg TD [facility] Last Admin: 10/23/19 11:14 Dose: 0.1 mg Documented by: Enoxaparin Sodium (Enoxaparin) 40 mg SUB-Q QDAY@2200 [facility] Hydralazine HCl (Apresoline) 10 mg IV Q4HR PRN PRN Reason: Hypertension Morphine Sulfate (Morphine) 2 mg IV Q4H PRN PRN Reason: Pain, Moderate (4-6) Nicotine (Habitrol) 14 mg TD QDAY [facility] Last Admin: 10/23/19 11:14 Dose: Not Given Documented by: Ondansetron HCl (Zofran) 4 mg IV Q4H PRN PRN Reason: Nausea And Vomiting Pantoprazole Sodium (Protonix) 40 mg IV QDAY [facility] Last Admin: 10/23/19 11:16 Dose: 40 mg Documented by: Review of Systems All systems: negative (as noted in HPI) Exam - Constitutional Vitals: Temp Pulse Resp BP Pulse Ox 98.7 F 78 16 158/80 97 10/23/19 10:37 10/23/19 10:37 10/23/19 10:37 10/23/19 10:37 10/23/19 10:37 General appearance: Present: no acute distress - EENT Eyes: Present: PERRL, EOM intact ENT: hearing intact - Neck Neck: Present: supple - Respiratory Respiratory effort: normal Respiratory: bilateral: CTA - Cardiovascular Rhythm: regular Heart Sounds: Present: S1 & S2 - Extremities Extremities: No edema - Abdominal General gastrointestinal: Present: soft, non-tender Results - Labs CBC & Chem 7: 10/23/19 03:41 10/23/19 03:41 Labs: Abnormal lab results 10/23/19 10/23/19 Range/Units 03:41 03:41 WBC 13.7 H (4.5-11.0) K/mm3 MCH 27 L (28-32) pg RDW 16.0 H (13.2-15.2) % Lymph % (Auto) 10.4 L (13.4-35.0) % Seg Neutrophils % 83.1 H (40.0-70.0) % Seg Neutrophils # 11.4 H (1.8-7.7) K/mm3 Sodium 136 L (137-145) mmol/L Potassium 3.4 L (3.6-5.0) mmol/L Carbon Dioxide 19 L (22-30) mmol/L Glucose 106 H (65-100) mg/dL Total Protein 8.3 H (6.3-8.2) g/dL Lipase > 1284 H (13-60) units/L - Imaging and Cardiology CT scan - abdomen: report reviewed (Mild interstitial pancreatitis) Assessment and Plan 1. Acute pancreatitismuch improved with fluids and pain meds. Currently relatively asymptomatic. Etiology unclear this is the patient's second attack in 2 years. Patient is on hydrochlorothiazide as well as lisinopril, and both of these are known to cause pancreatitis as a potential side effect. Given the lack of any other etiology, I would recommend that these medications be discontinued, as potential culprits. If, off these medications, she has further attacks, endoscopic ultrasonography and further testing may be warranted. -Advance diet -If does well, may discharge to home tomorrow.
[2019-10-23] MEDS: ACETAMINOPHEN 325 MG TAB PO PRN (21:02)
[2019-10-23] MEDS: ENOXAPARIN 40 MG/0.4 ML INJ SUB-Q SCH (21:02)
[2019-10-24] MEDS: ACETAMINOPHEN 325 MG TAB PO PRN ×2 (05:18→18:38)
[2019-10-24 05:31] LABS: Basophils # (Auto) 0.1 K/mm3 (0.0-0.1); Basophils % (Auto) 0.8 % (0.0-1.8); Hematocrit 38.7 % (30.3-42.9); Hemoglobin 12.8 gm/dl (10.1-14.3); Lymphocytes # (Auto) 1.5 K/mm3 (1.2-5.4); Lymphocytes % (Auto) 13.1 % (13.4-35.0); Mean Corpuscular HGB Conc 33 % (30-34); Mean Corpuscular Volume 82 fl (79-97); Monocytes # (Auto) 0.6 K/mm3 (0.0-0.8); Monocytes % (Auto) 5.6 % (0.0-7.3); Platelet Count 236 K/mm3 (140-440); Red Blood Count 4.75 M/mm3 (3.65-5.03); Red Cell Distribution Width 15.5 % (13.2-15.2)
[2019-10-24 05:42] LABS: Alanine Aminotransferase 9 units/L (7-56); Albumin 3.8 g/dL (3.9-5); BUN/Creatinine Ratio 16; Blood Urea Nitrogen 11 mg/dL (7-17); Calcium 9.6 mg/dL (8.4-10.2); Hemolysis Index 3
[2019-10-24] MEDS: PANTOPRAZOLE 40 MG INJ IV SCH (09:20)
[2019-10-24] MEDS: NICOTINE 14 MG/24 HR PATCH TD SCH (09:20)
--- NOTE | 2019-10-24 15:10 | Discharge Summary ---
Providers - Providers Date of Admission: 10/23/19 07:09 Date of discharge: 10/25/19 Attending physician: DEBORAH RUBIO 10/23/19 07:37 Consult to Physician [CONS] Routine Comment: Consulting Provider: SHANNAN AMBROCIO Physician Instructions: Reason For Exam: Acute pancreatitis Primary care physician: [employer] [facility] [facility] Hospitalization Reason for admission: Acute pancreatitis /abdominal with pain nausea vomiting Condition: Fair Pertinent studies: CT abdomen and pelvis; mild acute pancreatitis Extensive diverticulosis Abdominal ultrasound; Mild gallbladder sludge, borderline ectatic infrarenal abdominal aorta Hospital course: Very pleasant 69-year-old female patient with significant past medical history of hypertension ,depression, dyslipidemia And ongoing tobacco use presented to the emergency room with abdominal pain, epigastric and umbilical area associated with Nausea and vomiting since last night around 9 PM No hematemesis or melena, no rectal bleeding Initial work-up is consistent with acute pancreatitis on CT abdomen with very high lipase Initial work-up in the ED findings consistent with acute pancreatitis with elevated lipase, and CT findings Patient was admitted placed on n.p.o. status, managed with IV fluids pain medications tonics And supportive care Evaluated by GI in consultation, medications optimized Symptoms significantly improved, started on clear liquids advanced as tolerated Today patient is comfortable no new complaints vital signs stable Physical examinations unremarkable GI cleared, stable at discharge Discharge diagnosis; --Acute pancreatitis Improved --Intractable nausea vomiting; resolved --Hypertensive urgency; --Leukocytosis; secondary to pancreatitis --History of depression; --Ongoing tobacco use;Smoking cessation, nicotine patch as needed --Dyslipidemia; hold statin --DVT prophylaxis; Lovenox Patient symptoms significantly improved Tolerated regular diet GI cleared, stable at discharge Follow-up with GI per schedule Disposition: - TO HOME OR SELFCARE Time spent for discharge: 32 min Core Measure Documentation - Palliative Care Palliative Care/ Comfort Measures: Not Applicable - Core Measures Any of the following diagnoses?: none Exam - Constitutional Vitals: Temp Pulse Resp BP Pulse Ox 98.1 F 85 18 120/77 96 10/24/19 11:34 10/24/19 11:34 10/24/19 11:34 10/24/19 11:34 10/24/19 11:34 General appearance: Present: no acute distress, well-nourished - EENT Eyes: Present: PERRL, EOM intact - Neck Neck: Present: supple, normal ROM - Respiratory Respiratory effort: normal Respiratory: bilateral: diminished, negative: rales, rhonchi, wheezing - Cardiovascular Rhythm: regular Heart Sounds: Present: S1 & S2 - Extremities Extremities: no ischemia, No edema - Abdominal General gastrointestinal: Present: soft, non-tender, non-distended, normal bowel sounds - Integumentary Integumentary: Present: clear, warm - Musculoskeletal Musculoskeletal: strength equal bilaterally, generalized weakness - Psychiatric Psychiatric: appropriate mood/affect, cooperative - Neurologic Neurologic: moves all extremities Plan Activity: advance as tolerated Diet: regular Additional Instructions: If you have severe nausea vomiting and abdominal pain, contact MD or go to emergency room. Advised to follow GI in 1 to 2 weeks Follow up with: PRIMARY CARE, [Primary Care Provider] - 3-5 Days SHANNAN AMBROCIO MD [Staff Physician] - 14 Days Prescriptions: oxyCODONE /ACETAMINOPHEN [Percocet 5/325] 1 tab PO BID PRN #10 tablet PRN Reason: Pain , Severe (7-10)
--- NOTE | 2019-10-24 15:35 | Progress Note ---
Assessment and Plan 1. Acute pancreatitisDoing fairly well. Having mild pain with po intake. Lipase and WBC decreasing but not normal. Etiology unclear this is the patient's second attack in 2 years. Patient is on hydrochlorothiazide as well as lisinopril, and both of these are known to cause pancreatitis as a potential side effect. Given the lack of any other etiology, I would recommend that these medications be discontinued, as potential culprits. If, off these medications, she has further attacks, endoscopic ultrasonography and further testing may be warranted. -Given ongoing, albeit mild symptoms, would consider deferring D/C til tomorrow, as pt is quite anxious and labs still elevated. Subjective Date of service: 10/24/19 Interval history: Pt doing better. States she is having twinges of pain with anything other than fruit. Objective - Constitutional Vitals: Vital Signs - 12hr 10/24/19 10/24/19 10/24/19 05:14 05:17 09:00 Temperature 98.5 F Pulse Rate 74 Respiratory 18 20 Rate Blood Pressure 141/84 O2 Sat by Pulse 99 Oximetry 10/24/19 10/24/19 10:59 11:34 Temperature 98.1 F Pulse Rate 85 Respiratory 20 18 Rate Blood Pressure 120/77 O2 Sat by Pulse 96 Oximetry General appearance: Present: mild distress (anxious) - EENT Eyes: PERRL, EOM intact ENT: hearing intact - Respiratory Respiratory effort: normal - Gastrointestinal General gastrointestinal: Present: soft, non-tender - Labs CBC & Chem 7: 10/24/19 05:06 10/24/19 05:06 Labs: Abnormal lab results 10/24/19 10/24/19 Range/Units 05:06 05:06 WBC 11.5 H (4.5-11.0) K/mm3 MCH 27 L (28-32) pg RDW 15.5 H (13.2-15.2) % Lymph % (Auto) 13.1 L (13.4-35.0) % Seg Neutrophils % 80.5 H (40.0-70.0) % Seg Neutrophils # 9.2 H (1.8-7.7) K/mm3 Sodium 135 L (137-145) mmol/L Potassium 3.3 L (3.6-5.0) mmol/L Carbon Dioxide 21 L (22-30) mmol/L Albumin 3.8 L (3.9-5) g/dL Amylase 377 H (27-131) units/L Lipase 355 H (13-60) units/L Medications & Allergies - Medications Allergies/Adverse Reactions: Allergies No Known Allergies Allergy (Verified 01/26/16 10:01) Home Medications: Home Medications Medication Instructions Recorded Confirmed Last Taken Type hydroCHLOROthiazide [HCTZ] 25 mg PO QDAY 01/28/13 10/23/19 07/13/16 09:00 History Aspirin 325 mg PO DAILY 08/12/18 10/23/19 Unknown History AtorvaSTATin [Lipitor] 20 mg PO QHS 08/12/18 10/23/19 Unknown History Enalapril Maleate (Nf) 10 mg PO DAILY 08/12/18 10/23/19 Unknown History Sertraline [Zoloft] 50 mg PO DAILY 08/12/18 10/23/19 Unknown History Nicotine [Habitrol] 7 mg TD QDAY #30 patch 08/15/18 10/23/19 Unknown Rx Pantoprazole [Protonix TAB] 40 mg PO QDAY #30 tablet 08/15/18 10/23/19 Unknown Rx oxyCODONE /ACETAMINOPHEN [Percocet 1 tab PO BID PRN #10 tablet 10/24/19 Unknown Rx 5/325] Active Medications: Generic Name Dose Route Start Last Admin Trade Name Freq PRN Reason Stop Dose Admin Acetaminophen 650 mg 10/23/19 20:50 10/24/19 05:18 Tylenol PO 650 mg Q8H PRN Administration Pain, Mild (1-3) Clonidine HCl 0.1 mg 10/23/19 10:00 10/23/19 11:14 Catapres-Tts Patch TD 0.1 mg We SULEMA Administration Enoxaparin Sodium 40 mg 10/23/19 22:00 10/23/19 21:02 Enoxaparin SUB-Q 40 mg QDAY@2200 [facility] Administration Hydralazine HCl 10 mg 10/23/19 07:32 10/23/19 20:56 Apresoline IV 10 mg Q4HR PRN Administration Hypertension Morphine Sulfate 2 mg 10/23/19 07:27 10/24/19 10:59 Morphine IV 2 mg Q4H PRN Administration Pain, Moderate (4-6) Nicotine 14 mg 10/23/19 10:00 10/24/19 09:20 Habitrol TD Not Given QDAY [facility] Ondansetron HCl 4 mg 10/23/19 07:27 10/23/19 21:45 Zofran IV 4 mg Q4H PRN Administration Nausea And Vomiting Pantoprazole Sodium 40 mg 10/25/19 10:00 Protonix PO DAILY [facility] HEART Score - HEART Score Troponin: Troponin T < 0.010 ng/mL (0.00-0.029) 10/23/19 03:59
--- NOTE | 2019-10-24 15:41 | Progress Note ---
Assessment and Plan Assessment and plan: --Acute pancreatitis; Regular diet as tolerated[per GI], IV fluids, pain medications Abdominal ultrasound findings reviewed GI following --Hypertensive urgency; well controlled Continue current antihypertensives --Leukocytosis; secondary to pancreatitis Closely monitor, trending down --History of depression; Antidepressants when patient is able to take oral --Ongoing tobacco use; Smoking cessation counseling, nicotine patch as needed --Dyslipidemia; hold statin Resume when patient is able to take oral --DVT prophylaxis; Lovenox Monitor closely and adjust management as needed Possible discharge home tomorrow if stable Ho of care reviewed with the patient as well as GI History Interval history: Patient was initially plan to discharge home, however she continued to have abdominal pain Discussed with GI, will closely observe 1 more night Patient denies any nausea vomiting Mild abdominal pain Vital signs reviewed Hospitalist Physical - Constitutional Vitals: Temp Pulse Resp BP Pulse Ox 98.1 F 85 18 120/77 96 10/24/19 11:34 10/24/19 11:34 10/24/19 11:34 10/24/19 11:34 10/24/19 11:34 General appearance: Present: no acute distress, well-nourished - EENT Eyes: Present: PERRL, EOM intact - Neck Neck: Present: supple, normal ROM - Respiratory Respiratory effort: normal Respiratory: bilateral: diminished, negative: rales, rhonchi, wheezing - Cardiovascular Rhythm: regular Heart Sounds: Present: S1 & S2 - Extremities Extremities: no ischemia, No edema - Abdominal General gastrointestinal: soft, non-tender, tender (No guarding no rigidity), normal bowel sounds - Integumentary Integumentary: Present: clear, warm - Psychiatric Psychiatric: appropriate mood/affect, cooperative HEART Score - HEART Score Troponin: Troponin T < 0.010 ng/mL (0.00-0.029) 10/23/19 03:59 Results - Labs CBC & Chem 7: 10/24/19 05:06 10/24/19 05:06 Labs: Laboratory Last Values WBC 11.5 K/mm3 (4.5-11.0) H 10/24/19 05:06 RBC 4.75 M/mm3 (3.65-5.03) 10/24/19 05:06 Hgb 12.8 gm/dl (10.1-14.3) 10/24/19 05:06 Hct 38.7 % (30.3-42.9) 10/24/19 05:06 MCV 82 fl (79-97) 10/24/19 05:06 MCH 27 pg (28-32) L 10/24/19 05:06 MCHC 33 % (30-34) 10/24/19 05:06 RDW 15.5 % (13.2-15.2) H 10/24/19 05:06 Plt Count 236 K/mm3 (140-440) 10/24/19 05:06 Lymph % (Auto) 13.1 % (13.4-35.0) L 10/24/19 05:06 [place] % (Auto) 5.6 % (0.0-7.3) 10/24/19 05:06 Eos % (Auto) 0.0 % (0.0-4.3) 10/24/19 05:06 Baso % (Auto) 0.8 % (0.0-1.8) 10/24/19 05:06 Lymph # 1.5 K/mm3 (1.2-5.4) 10/24/19 05:06 [place] # 0.6 K/mm3 (0.0-0.8) 10/24/19 05:06 Eos # 0.0 K/mm3 (0.0-0.4) 10/24/19 05:06 Baso # 0.1 K/mm3 (0.0-0.1) 10/24/19 05:06 Seg Neutrophils % 80.5 % (40.0-70.0) H 10/24/19 05:06 Seg Neutrophils # 9.2 K/mm3 (1.8-7.7) H 10/24/19 05:06 Sodium 135 mmol/L (137-145) L 10/24/19 05:06 Potassium 3.3 mmol/L (3.6-5.0) L 10/24/19 05:06 Chloride 99.3 mmol/L (98-107) 10/24/19 05:06 Carbon Dioxide 21 mmol/L (22-30) L 10/24/19 05:06 Anion Gap 18 mmol/L 10/24/19 05:06 BUN 11 mg/dL (7-17) 10/24/19 05:06 Creatinine 0.7 mg/dL (0.7-1.2) 10/24/19 05:06 Estimated GFR > 60 ml/min 10/24/19 05:06 BUN/Creatinine Ratio 16 % 10/24/19 05:06 Glucose 98 mg/dL (65-100) 10/24/19 05:06 Calcium 9.6 mg/dL (8.4-10.2) 10/24/19 05:06 Total Bilirubin 0.40 mg/dL (0.1-1.2) 10/24/19 05:06 AST 21 units/L (5-40) 10/24/19 05:06 ALT 9 units/L (7-56) 10/24/19 05:06 Alkaline Phosphatase 66 units/L (35-129) 10/24/19 05:06 Troponin T < 0.010 ng/mL (0.00-0.029) 10/23/19 03:59 Total Protein 7.9 g/dL (6.3-8.2) 10/24/19 05:06 Albumin 3.8 g/dL (3.9-5) L 10/24/19 05:06 Albumin/Globulin Ratio 0.9 % 10/24/19 05:06 Amylase 377 units/L (27-131) H 10/24/19 05:06 Lipase 355 units/L (13-60) H 10/24/19 05:06 Urine Color Straw (Yellow) 10/23/19 03:41 Urine Turbidity Clear (Clear) 10/23/19 03:41 Urine pH 7.0 (5.0-7.0) 10/23/19 03:41 Ur Specific [place] 1.008 (1.003-1.030) 10/23/19 03:41 Urine Protein 30 mg/dl mg/dL (Negative) 10/23/19 03:41 Urine Glucose (UA) Neg mg/dL (Negative) 10/23/19 03:41 Urine Ketones Neg mg/dL (Negative) 10/23/19 03:41 Urine Blood Neg (Negative) 10/23/19 03:41 Urine Nitrite Neg (Negative) 10/23/19 03:41 Urine Bilirubin Neg (Negative) 10/23/19 03:41 Urine Urobilinogen < 2.0 mg/dL (<2.0) 10/23/19 03:41 Ur Leukocyte Esterase Neg (Negative) 10/23/19 03:41 Urine WBC (Auto) 1.0 /HPF (0.0-6.0) 10/23/19 03:41 Urine RBC (Auto) 4.0 /HPF (0.0-6.0) 10/23/19 03:41 U Epithel Cells (Auto) < 1.0 /HPF (0-13.0) 10/23/19 03:41 Urine Bacteria (Auto) 1+ /HPF (Negative) 10/23/19 03:41 Urine Mucus Few /HPF 10/23/19 03:41 [place]vares/IV: Voiding Method Toilet IV Catheter Type [Right INT / Saline Lock Forearm] IV Catheter Type [Left INT / Saline Lock Antecubital] Active Medications - Current Medications Current Medications: Generic Name Dose Route Start Last Admin Trade Name Freq PRN Reason Stop Dose Admin Acetaminophen 650 mg 10/23/19 20:50 10/24/19 05:18 Tylenol PO 650 mg Q8H PRN Administration Pain, Mild (1-3) Clonidine HCl 0.1 mg 10/23/19 10:00 10/23/19 11:14 Catapres-Tts Patch TD 0.1 mg We SULEMA Administration Enoxaparin Sodium 40 mg 10/23/19 22:00 10/23/19 21:02 Enoxaparin SUB-Q 40 mg QDAY@2200 [facility] Administration Hydralazine HCl 10 mg 10/23/19 07:32 10/23/19 20:56 Apresoline IV 10 mg Q4HR PRN Administration Hypertension Morphine Sulfate 2 mg 10/23/19 07:27 10/24/19 10:59 Morphine IV 2 mg Q4H PRN Administration Pain, Moderate (4-6) Nicotine 14 mg 10/23/19 10:00 10/24/19 09:20 Habitrol TD Not Given QDAY [facility] Ondansetron HCl 4 mg 10/23/19 07:27 10/23/19 21:45 Zofran IV 4 mg Q4H PRN Administration Nausea And Vomiting Pantoprazole Sodium 40 mg 10/25/19 10:00 Protonix PO DAILY [facility]
[2019-10-24] MEDS ORDERED: MELATONIN 5 MG TAB PO PRN (20:53)
[2019-10-24] MEDS: ENOXAPARIN 40 MG/0.4 ML INJ SUB-Q SCH (21:11)
[2019-10-25 06:33] VITALS: BP 161/83
[2019-10-25] MEDS: NICOTINE 14 MG/24 HR PATCH TD SCH (09:23)
[2019-10-25] MEDS ORDERED: PANTOPRAZOLE 40 MG TAB PO SCH (10:00)
[2019-10-25] MEDS ORDERED: hydroCHLOROthiazide 25 MG TAB PO SCH (10:00)
[2019-10-25] MEDS ORDERED: SERTRALINE 50 MG TAB PO SCH (10:00)
== END 2019-10-25 13:30 | disposition home or self-care (01) ==
LOC: ED 02:54 → INTOOBSV 07:09 → 3A 07:09
PROVIDERS: ADMIT Internal Medicine; ATTEND Internal Medicine
DX: K85.90 Acute pancreatitis without necrosis or infection, unspecified (principal); R11.2 Nausea with vomiting, unspecified; I16.0 Hypertensive urgency; D72.829 Elevated white blood cell count, unspecified; E78.5 Hyperlipidemia, unspecified; F32.9 Major depressive disorder, single episode, unspecified; M19.90 Unspecified osteoarthritis, unspecified site; J45.909 Unspecified asthma, uncomplicated; F17.200 Nicotine dependence, unspecified, uncomplicated; Z98.51 Tubal ligation status; Z90.49 Acquired absence of other specified parts of digestive tract; Z90.710 Acquired absence of both cervix and uterus; Z79.82 Long term (current) use of aspirin; Z79.899 Other long term (current) drug therapy
CPT/HCPCS: 36415; 74177; 76700; 80053; 81001; 82150; 83690; 84484; 85025; 93005; 96361; 96372; 96374; 96375; 96376; 99285; A9270; C9113; G0378; J0360; J1170; J1650; J2270; J2405; J7030; Q9967